=== PATIENT | male | born 1955 | race Caucasian/White ===

== ENCOUNTER → 2016-06-29 | Outpatient (CLI) | payer MEDICARE ==
[2016-06-29 13:11] LABS: Bilirubin, Delta 0.5 mg/dL (0.0-0.2); Total Bilirubin 0.9 mg/dL (0.2-1.3); Total Protein 7.4 g/dL (6.3-8.2)
[2016-06-29 13:18] LABS: INR 1.4 (<1.1)
[2016-06-29 13:20] LABS: Basophils % (A) 1 %; CH 31.5; CHCM 34.3; Eosinophils # (A) 0.1 k/uL (0-0.7); Eosinophils % (A) 1 %; HCT 47.9 % (39.0-53.0); HDW 2.74; HGB 16.1 gm/dL (13.0-17.5); Luc # (Auto) 0.06; Luc % (Auto) 1; Lymphocytes # (A) 1.3 k/uL (1.0-4.8); Lymphocytes % (A) 26 %; MCH 31.1 pg (25.0-35.0); MCHC 33.7 g/dL (31.0-37.0); MCV 92.3 fL (80.0-100.0); Monocytes # (A) 0.2 k/uL (0-1.0); Monocytes % (A) 4 %; Neutrophils # (A) 3.5 k/uL (1.3-7.7); Neutrophils % (A) 67 %; RBC 5.19 m/uL (4.30-5.90); RDW 15.7 % (11.5-15.5); WBC 5.1 k/uL (3.8-10.6); WBC (Perox) 5.05
[2016-06-29 14:07] LABS: Manual Review Performed
== END | disposition home or self-care (01) ==
LOC: LABWHC1 12:25
PROVIDERS: ATTEND Physician Assistant
DX: B18.2 Chronic viral hepatitis C (principal)
CPT/HCPCS: 36415; 80076; 82105; 85025; 85610

== ENCOUNTER → 2016-07-06 | Outpatient (CLI) | payer MEDICARE ==
[2016-07-06 17:25] LABS: Blood Urea Nitrogen 13 mg/dL (9-20); Non-African American GFR(MDRD) >60 (>60 ml/min/1.73 sqM)
--- NOTE | 2016-07-06 18:52 | MR ---
EXAMINATION TYPE: MR liver wo/w con DATE OF EXAM: CT abdomen pelvis 08/10/2013 COMPARISON: NONE HISTORY: Chronic viral Hepatitis C CONTRAST: Standard multiplanar, multisequence MRI departmental protocol utilizing 15 mL intravenous MultiHance gadolinium contrast. FINDINGS: The liver is diminutive in size with peripheral nodular contour compatible with a cirrhotic liver dis ease. No intrahepatic lesion is identified. There is evidence of hepatic steatosis. The gallbladder a ppears to be surgically absent. There is evidence of splenomegaly with craniocaudal measurement of 16.5 cm. No intrasplenic lesion is seen. Portal vein is patent. Pancreas is free of mass or inflammatory process. Nodular thickening of both adrenal glands may reflect small adenomas versus hyperplasia. Simple renal cysts identified measuring 3.8 cm on the right at its upper pole and 3.5 cm mid to lower pole left kidney. A smaller renal cortical cysts are also noted. Abdominal aorta is of normal caliber. No evidence for adenopathy within the upper abdomen. IMPRESSION: 1. Cirrhotic liver disease. 2. Splenomegaly. 3. Hepatic steatosis. 4. Simple renal cysts.
== END | disposition home or self-care (01) ==
LOC: RADMRIMAIN 16:52
PROVIDERS: ATTEND Physician Assistant
DX: K76.0 Fatty (change of) liver, not elsewhere classified (principal); K74.60 Unspecified cirrhosis of liver; R16.1 Splenomegaly, not elsewhere classified; B18.2 Chronic viral hepatitis C; N28.1 Cyst of kidney, acquired
CPT/HCPCS: 82565; 84520; 74183; A9577

== ENCOUNTER 2016-07-19 07:38 | Day surgery (SDC) | payer MEDICARE ==
[2016-06-30 15:59] VITALS: BMI 29.1
[~2016-07-19 07:38] MED LIST: LACTATED RINGERS 1,000 ML IV SCH
[2016-07-19 08:02] VITALS: TEMP 98.2
[2016-07-19] MEDS ORDERED: LIDOCAINE 1% 20 ML VIAL (10MG/ML) FOR IV START INTRADERMA ONE (08:11)
[2016-07-19] MEDS ORDERED: PROPOFOL 10 MG/ML 20 ML VIAL IV ONE (09:10)
--- NOTE | 2016-07-19 10:16 | P.PCN ---
Date of Procedure: 07/19/16 Preoperative Diagnosis: Postoperative Diagnosis: Procedure(s) Performed: Procedures: 1. Esophagogastroduodenoscopy and biopsy. 2. Colonoscopy and polypectomy. Preoperative diagnosis: Abdominal pain, history of polyps and history of diverticulitis. Postoperative diagnosis: 1. Small sliding hiatal hernia with no obvious esophagitis or complicated reflux disease. 2. Mild gastritis and duodenitis. 3. Sigmoid diverticulosis with no evidence of acute diverticulitis or strictures. 4. Multiple small polyps snared but no large polyps or cancer. Preparation: HalfLytely prep. Sedation: Was provided by anesthesia. Brief clinical history: The patient is a 61-year-old male who was scheduled for this evaluation because of history of polyps and recent episode of diverticulitis. He has been also experiencing abdominal pain. Procedure: With the patient on his left lateral decubitus position and after informed consent and adequate sedation, I passed the Olympus-GIF 160 video upper endoscope through the cricopharyngeus down the esophagus. GE junction was at around 41 cm from the incisors and there was a small sliding hiatal hernia. The esophagus did not show any erosions, ulcers, strictures or Garcia' s esophagus. The endoscope was then passed into the stomach which was insufflated with air and inspected in detail including the retroflex view in the cardia. There was some mottling and erythema in the antrum but no ulcers or erosions. Pyloric channel did not show any ulcers. Duodenal bulb showed some erythema and couple erosions but no ulcers or bleeding post bulbar area and descending duodenum showed mild erythema. I obtained biopsies from the duodenum, antrum and esophagus then the endoscope was withdrawn and I proceeded with the colonoscopy. Perianal area did not show any fissures or fistulas. There were no masses felt on digital rectal examination. The Olympus CFQ 160L video colonoscope was then inserted in the rectum in the usual fashion and advanced to the cecum. There were multiple diverticular orifices seen scattered in the sigmoid with no evidence of acute diverticulitis or strictures. Multiple small polyps were seen and snared couple in the right colon and couple around the hepatic and couple around the splenic flexure. No large polyps or cancer were seen. I retroflexed the endoscope in the rectum before the endoscope was withdrawn. The patient tolerated the procedure well. Plan: The patient was reassured. Will await biopsy results. I anticipate repeating his colonoscopy in 3 years. He will follow up with you as planned. Implants: Indications for Procedure: Operative Findings: Description of Procedure:
[2016-07-19 10:26] VITALS: BP 132/80; PULSE 75; RESP 18
== END 2016-07-19 11:10 | disposition home or self-care (01) ==
LOC: ORWHC2ENDO 07:38
DX: K29.50 Unspecified chronic gastritis without bleeding (principal); K20.9 Esophagitis, unspecified; D12.3 Benign neoplasm of transverse colon; K63.5 Polyp of colon; K44.9 Diaphragmatic hernia without obstruction or gangrene; K57.30 Diverticulosis of large intestine without perforation or abscess without bleeding; Z86.010 Personal history of colon polyps; K29.80 Duodenitis without bleeding; J44.9 Chronic obstructive pulmonary disease, unspecified; E07.9 Disorder of thyroid, unspecified; Z88.5 Allergy status to narcotic agent; Z91.09 Other allergy status, other than to drugs and biological substances
CPT/HCPCS: 88305; 88342; 45385; 43239; J2704

== ENCOUNTER 2017-04-24 21:14 | Inpatient (IN) | payer MEDICARE ==
[2017-04-24] MEDS ORDERED: ACETAMINOPHEN TAB 500 MG TAB PO STA (21:41)
[2017-04-24] MEDS ORDERED: SODIUM CHLORIDE 0.9% 500 ML IV STA (21:41)
--- NOTE | 2017-04-24 21:46 | ED ---
Weakness HPI - General Chief complaint: Weakness Stated complaint: Poss CVA Time Seen by Provider: 04/24/17 21:33 Source: patient, EMS, RN notes reviewed Mode of arrival: ambulatory Limitations: no limitations - History of Present Illness Initial comments: This a 62-year-old male presents emergency Department via EMS for increased weakness. Patient states that his family is concerned because he seemed to be more weak than he has been recently. Patient states he had a hemorrhagic stroke in December. Patient states she was transferred from here to [facility] in states that he went to rehab after. Patient states that he had very little limited range of motion of his left leg has essentially no movement of his left arm and has residual facial paralysis. Patient states that he feels this is unchanged though family that it was worse. Patient states that he does have a slight headache but has been on and off. Patient states that he did not know he had a fever at home. Patient denies any recent Tylenol or Motrin. Patient states he has had a cough and is mildly productive. Patient states he was a former smoker quit after his stroke. Patient denies any dysuria , hematuria. Patient denies any current chest pain, shortness breath, nausea vomiting. - Related Data Home Medications Medication Instructions Recorded Confirmed FLUoxetine HCL [PROzac] 20 mg PO DAILY 04/24/17 04/24/17 Gabapentin [Neurontin] 800 mg PO TID 04/24/17 04/24/17 Levothyroxine Sodium [Synthroid] 50 mcg PO DAILY 04/24/17 04/24/17 Lisinopril [Zestril] 20 mg PO DAILY 04/24/17 04/24/17 levETIRAcetam [Keppra] 500 mg PO Q12HR 04/24/17 04/24/17 Allergies Allergy/AdvReac Type Severity Reaction Status Date / Time tramadol Allergy Severe SEIZURE Verified 04/24/17 21:24 black rubber Allergy Severe Dyspnea, Uncoded 04/24/17 21:24 Swelling Review of Systems ROS Statement: Those systems with pertinent positive or pertinent negative responses have been documented in the HPI. ROS Other: All systems not noted in ROS Statement are negative. Past Medical History Past Medical History: Thyroid Disorder Additional Past Medical History / Comment(s): hemorrhagic stroke, cirrohsis, hep c History of Any Multi-Drug Resistant Organisms: None Reported Past Surgical History: Hernia Repair, Orthopedic Surgery Past Psychological History: No Psychological Hx Reported Smoking Status: Former smoker Past Alcohol Use History: None Reported Past Drug Use History: None Reported General Exam Limitations: no limitations General appearance: alert, in no apparent distress Head exam: Present: atraumatic, normocephalic, normal inspection Eye exam: Present: normal appearance, PERRL, EOMI. Absent: scleral icterus, conjunctival injection, periorbital swelling ENT exam: Present: normal oropharynx, mucous membranes moist, TM's normal bilaterally, normal external ear exam. Absent: normal exam (Residual left- sided facial drooping) Neck exam: Present: normal inspection, full ROM. Absent: tenderness, meningismus, lymphadenopathy Respiratory exam: Present: normal lung sounds bilaterally. Absent: respiratory distress, wheezes, rales, rhonchi, stridor Cardiovascular Exam: Present: normal rhythm, tachycardia, normal heart sounds. Absent: systolic murmur, diastolic murmur, rubs, gallop, clicks GI/Abdominal exam: Present: soft, normal bowel sounds. Absent: distended, tenderness, guarding, rebound, rigid Extremities exam: Present: other (Pulses are equal in all extremities, patient has limited movement of left lower extremity, essentially no movement of the left upper extremity patient reports is unchanged from his normal baseline) Neurological exam: Present: alert, oriented X3, CN II-XII intact, reflexes normal, other (Unable to assess finger-nose with left hand, right hand intact without shooting, GCS of 15). Absent: motor sensory deficit Skin exam: Present: warm, dry, intact, normal color. Absent: rash Course Vital Signs 04/24/17 04/24/17 21:24 22:52 Temperature 101.1 F H 100.4 F H Pulse Rate 103 H 89 Respiratory 20 18 Rate Blood Pressure 99/70 105/85 O2 Sat by Pulse 95 95 Oximetry EKG Findings - EKG Comments: EKG Findings:: EKG performed at 22:14 normal sinus rhythm with a rate of 92 CO 156 QRS 86 QT/QTC 350/432 Medical Decision Making - Medical Decision Making 62-year-old male presented for weakness. Patient has pneumonia, UTI and slightly elevated CK. Patient was hydrated emergency breath. Patient was started on antibiotics for hospital-acquired pneumonia as he has been within the hospital last few months. There is evidence of old infarct there is no new infarct noted on CT. - Lab Data Result diagrams: 04/24/17 21:54 04/24/17 21:54 Lab Results 04/24/17 04/24/17 04/24/17 Range/Units 21:54 21:54 21:54 WBC 8.9 (3.8-10.6) k/uL RBC 5.21 (4.30-5.90) m/uL Hgb 15.4 (13.0-17.5) gm/dL Hct 46.6 (39.0-53.0) % MCV 89.3 (80.0-100.0) fL MCH 29.6 (25.0-35.0) pg MCHC 33.1 (31.0-37.0) g/dL RDW 14.5 (11.5-15.5) % Plt Count 105 L (150-450) k/uL Neutrophils % 76 % Lymphocytes % 18 % Monocytes % 4 % Eosinophils % 2 % Basophils % 0 % Neutrophils # 6.7 (1.3-7.7) k/uL Lymphocytes # 1.6 (1.0-4.8) k/uL Monocytes # 0.4 (0-1.0) k/uL Eosinophils # 0.2 (0-0.7) k/uL Basophils # 0.0 (0-0.2) k/uL PT (9.0-12.0) sec INR (<1.2) APTT (22.0-30.0) sec Sodium 139 (137-145) mmol/L Potassium 4.1 (3.5-5.1) mmol/L Chloride 102 (98-107) mmol/L Carbon Dioxide 29 (22-30) mmol/L Anion Gap 8 mmol/L BUN 12 (9-20) mg/dL Creatinine 0.70 (0.66-1.25) mg/dL Est GFR (MDRD) Af Amer >60 (>60 ml/min/1.73 sqM) Est GFR (MDRD) Non-Af >60 (>60 ml/min/1.73 sqM) Glucose 119 H (74-99) mg/dL Plasma Lactic Acid Ralf (0.7-2.0) mmol/L Calcium 9.7 (8.4-10.2) mg/dL Magnesium 1.9 (1.6-2.3) mg/dL Total Bilirubin 1.0 (0.2-1.3) mg/dL AST 59 (17-59) U/L ALT 34 (21-72) U/L Alkaline Phosphatase 93 (38-126) U/L Total Creatine Kinase 1405 H (55-170) U/L CK-MB (CK-2) 1.5 (0.0-2.4) ng/mL CK-MB (CK-2) Rel Index 0.1 Troponin I <0.012 (0.000-0.034) ng/mL Total Protein 7.2 (6.3-8.2) g/dL Albumin 3.7 (3.5-5.0) g/dL Urine Color Urine Appearance (Clear) Urine pH (5.0-8.0) Ur Specific [place] (1.001-1.035) Urine Protein (Negative) Urine Glucose (UA) (Negative) Urine Ketones (Negative) Urine Blood (Negative) Urine Nitrite (Negative) Urine Bilirubin (Negative) Urine Urobilinogen (<2.0) mg/dL Ur Leukocyte Esterase (Negative) Urine RBC (0-5) /hpf Urine WBC (0-5) /hpf Influenza Type A RNA (Not Detectd) Influenza Type B (PCR) (Not Detectd) 04/24/17 04/24/17 04/24/17 Range/Units 21:54 21:54 21:54 WBC (3.8-10.6) k/uL RBC (4.30-5.90) m/uL Hgb (13.0-17.5) gm/dL Hct (39.0-53.0) % MCV (80.0-100.0) fL MCH (25.0-35.0) pg MCHC (31.0-37.0) g/dL RDW (11.5-15.5) % Plt Count (150-450) k/uL Neutrophils % % Lymphocytes % % Monocytes % % Eosinophils % % Basophils % % Neutrophils # (1.3-7.7) k/uL Lymphocytes # (1.0-4.8) k/uL Monocytes # (0-1.0) k/uL Eosinophils # (0-0.7) k/uL Basophils # (0-0.2) k/uL PT 11.8 (9.0-12.0) sec INR 1.2 H (<1.2) APTT 22.5 (22.0-30.0) sec Sodium (137-145) mmol/L Potassium (3.5-5.1) mmol/L Chloride (98-107) mmol/L Carbon Dioxide (22-30) mmol/L Anion Gap mmol/L BUN (9-20) mg/dL Creatinine (0.66-1.25) mg/dL Est GFR (MDRD) Af Amer (>60 ml/min/1.73 sqM) Est GFR (MDRD) Non-Af (>60 ml/min/1.73 sqM) Glucose (74-99) mg/dL Plasma Lactic Acid Ralf 1.5 (0.7-2.0) mmol/L Calcium (8.4-10.2) mg/dL Magnesium (1.6-2.3) mg/dL Total Bilirubin (0.2-1.3) mg/dL AST (17-59) U/L ALT (21-72) U/L Alkaline Phosphatase (38-126) U/L Total Creatine Kinase (55-170) U/L CK-MB (CK-2) (0.0-2.4) ng/mL CK-MB (CK-2) Rel Index Troponin I (0.000-0.034) ng/mL Total Protein (6.3-8.2) g/dL Albumin (3.5-5.0) g/dL Urine Color Yellow Urine Appearance Clear (Clear) Urine pH 8.0 (5.0-8.0) Ur Specific [place] 1.006 (1.001-1.035) Urine Protein Negative (Negative) Urine Glucose (UA) Negative (Negative) Urine Ketones Negative (Negative) Urine Blood Negative (Negative) Urine Nitrite Negative (Negative) Urine Bilirubin Negative (Negative) Urine Urobilinogen 8.0 (<2.0) mg/dL Ur Leukocyte Esterase Large H (Negative) Urine RBC 3 (0-5) /hpf Urine WBC 26 H (0-5) /hpf Influenza Type A RNA (Not Detectd) Influenza Type B (PCR) (Not Detectd) 04/24/17 Range/Units 22:00 WBC (3.8-10.6) k/uL RBC (4.30-5.90) m/uL Hgb (13.0-17.5) gm/dL Hct (39.0-53.0) % MCV (80.0-100.0) fL MCH (25.0-35.0) pg MCHC (31.0-37.0) g/dL RDW (11.5-15.5) % Plt Count (150-450) k/uL Neutrophils % % Lymphocytes % % Monocytes % % Eosinophils % % Basophils % % Neutrophils # (1.3-7.7) k/uL Lymphocytes # (1.0-4.8) k/uL Monocytes # (0-1.0) k/uL Eosinophils # (0-0.7) k/uL Basophils # (0-0.2) k/uL PT (9.0-12.0) sec INR (<1.2) APTT (22.0-30.0) sec Sodium (137-145) mmol/L Potassium (3.5-5.1) mmol/L Chloride (98-107) mmol/L Carbon Dioxide (22-30) mmol/L Anion Gap mmol/L BUN (9-20) mg/dL Creatinine (0.66-1.25) mg/dL Est GFR (MDRD) Af Amer (>60 ml/min/1.73 sqM) Est GFR (MDRD) Non-Af (>60 ml/min/1.73 sqM) Glucose (74-99) mg/dL Plasma Lactic Acid Ralf (0.7-2.0) mmol/L Calcium (8.4-10.2) mg/dL Magnesium (1.6-2.3) mg/dL Total Bilirubin (0.2-1.3) mg/dL AST (17-59) U/L ALT (21-72) U/L Alkaline Phosphatase (38-126) U/L Total Creatine Kinase (55-170) U/L CK-MB (CK-2) (0.0-2.4) ng/mL CK-MB (CK-2) Rel Index Troponin I (0.000-0.034) ng/mL Total Protein (6.3-8.2) g/dL Albumin (3.5-5.0) g/dL Urine Color Urine Appearance (Clear) Urine pH (5.0-8.0) Ur Specific [place] (1.001-1.035) Urine Protein (Negative) Urine Glucose (UA) (Negative) Urine Ketones (Negative) Urine Blood (Negative) Urine Nitrite (Negative) Urine Bilirubin (Negative) Urine Urobilinogen (<2.0) mg/dL Ur Leukocyte Esterase (Negative) Urine RBC (0-5) /hpf Urine WBC (0-5) /hpf Influenza Type A RNA Not Detected (Not Detectd) Influenza Type B (PCR) Not Detected (Not Detectd) Disposition Clinical Impression: Pneumonia, UTI (urinary tract infection) Disposition: ADMITTED IP TO THIS HOSP Condition: Fair Referrals: Juancarlos Beck DO [Primary Care Provider] - 1-2 days
[2017-04-24] MEDS ORDERED: LIDOCAINE URO-JET JELLY 2% 5 ML KIT URETHRAL ONE (21:50)
[2017-04-24 22:10] LABS: Basophils % (A) 0 %; Eosinophils # (A) 0.2 k/uL (0-0.7); Eosinophils % (A) 2 %; HCT 46.6 % (39.0-53.0); HGB 15.4 gm/dL (13.0-17.5); Lymphocytes # (A) 1.6 k/uL (1.0-4.8); Lymphocytes % (A) 18 %; MCH 29.6 pg (25.0-35.0); MCHC 33.1 g/dL (31.0-37.0); MCV 89.3 fL (80.0-100.0); Mean Platelet Volume 9.6; Monocytes # (A) 0.4 k/uL (0-1.0); Monocytes % (A) 4 %; Neutrophils # (A) 6.7 k/uL (1.3-7.7); Neutrophils % (A) 76 %; Platelet Count 105 k/uL (150-450); RBC 5.21 m/uL (4.30-5.90); RDW 14.5 % (11.5-15.5); WBC 8.9 k/uL (3.8-10.6)
[2017-04-24 22:19] LABS: Appearance,Urine Clear (Clear); Bilirubin,Urine Negative (Negative); Blood,Urine Negative (Negative); Color,Urine Yellow; Glucose,Urine (UA) Negative (Negative); INR 1.2 (<1.2); Ketones,Urine Negative (Negative); Leukocyte Esterase,Urine Large (Negative); Nitrite,Urine Negative (Negative); Partial Thromboplastin Time 22.5 sec (22.0-30.0); Protein,Urine Negative (Negative); Prothrombin Time 11.8 sec (9.0-12.0); RBC,Urine 3 /hpf (0-5); Specific Gravity,Urine 1.006 (1.001-1.035); WBC,Urine 26 /hpf (0-5)
[2017-04-24 22:24] LABS: ALT 34 U/L (21-72); AST 59 U/L (17-59); Albumin 3.7 g/dL (3.5-5.0); Alkaline Phosphatase 93 U/L (38-126); Anion Gap 8 mmol/L; Blood Urea Nitrogen 12 mg/dL (9-20); Calcium 9.7 mg/dL (8.4-10.2); Carbon Dioxide 29 mmol/L (22-30); Chloride 102 mmol/L (98-107); Creatine Kinase 1405 U/L (55-170); Glucose 119 mg/dL (74-99); Magnesium 1.9 mg/dL (1.6-2.3); Potassium 4.1 mmol/L (3.5-5.1); Sodium 139 mmol/L (137-145); Total Protein 7.2 g/dL (6.3-8.2)
[2017-04-24 22:38] LABS: Creatine Kinase MB 1.5 ng/mL (0.0-2.4); Troponin I <0.012 ng/mL (0.000-0.034)
[2017-04-24] MEDS ORDERED: SODIUM CHLORIDE 0.9% 500 ML IV ONE (22:41)
[2017-04-24] MEDS ORDERED: SODIUM CHLORIDE 0.9% 1,000 ML IV ONE (22:41)
--- NOTE | 2017-04-24 22:45 | CT ---
EXAMINATION TYPE: CT brain wo con DATE OF EXAM: 04/24/2017 COMPARISON: 08/10/2013 HISTORY: Altered mental status. CT DLP: 852.6 mGycm Automated exposure control for dose reduction was used. FINDINGS: There is a large area of hypodensity in the right internal capsule that measures 5 x 2.5 cm consisten t with an old infarct. There is no midline shift. There is no sign of intracranial hemorrhage. The ca lvarium is intact. There is some mucosal thickening in the ethmoid and left maxillary sinus. IMPRESSION: THERE IS A LARGE RIGHT SIDE INTERNAL CAPSULE INFARCT THAT APPEARS NEW COMPARED TO OLD CT SCAN. THERE IS NEW ETHMOID AND LEFT MAXILLARY SINUSITIS. NO HEMORRHAGE.
--- NOTE | 2017-04-24 22:51 | XR ---
EXAMINATION TYPE: XR chest 2V DATE OF EXAM: 04/24/2017 COMPARISON: 08/10/2013 HISTORY: Weakness TECHNIQUE: Frontal and lateral views of the chest are obtained. FINDINGS: There is mild infiltrate at the left lung base. There is no heart failure. Heart size is n ormal. Thoracic aorta is atheromatous. There are chest leads. IMPRESSION: There is increasing infiltrate and atelectasis at the left lung base compared to old exa m. No heart failure.
[2017-04-24] MEDS ORDERED: LEVOFLOXACIN 750MG-D5W PMX 750 MG in DEXTROSE/WATER 1 150ML.BAG IVPB STA (23:19)
[2017-04-24] MEDS ORDERED: PNEUMONIA PROTOCOL UTILIZED 1 EACH MISC PO PRN (23:19)
[2017-04-24] MEDS ORDERED: VANCOMYCIN IV PER PHARMACY 1 EACH MISC MISCELLANE PRN (23:20)
[2017-04-24] MEDS ORDERED: ACETAMINOPHEN TAB 325 MG TAB PO PRN (23:20)
[2017-04-24] MEDS ORDERED: VANCOMYCIN 1,500 MG in SODIUM CHLORIDE 0.9% 250 ML IVPB STA (23:28)
[2017-04-25] MEDS: SODIUM CHLORIDE 0.9% 1,000 ML IV SCH ×3 (00:05→22:47)
[2017-04-25] MEDS: HYDROcodone/APAP 10-325MG 1 EACH TAB PO PRN ×3 (00:55→19:23)
[2017-04-25 01:24] VITALS: BMI 28.8
[2017-04-25] MEDS ORDERED: VANCOMYCIN 1,500 MG in SODIUM CHLORIDE 0.9% 250 ML IVPB SCH (13:00)
--- NOTE | 2017-04-25 15:46 | XR ---
EXAMINATION TYPE: XR chest 2V DATE OF EXAM: 04/25/2017 COMPARISON: 04/24/2017 HISTORY: 62-year-old male follow-up pneumonia TECHNIQUE: AP and lateral views FINDINGS: Heart upper limits of normal in size. Atherosclerotic arch calcifications. Diffuse interstitial promi nence may be slightly increased. Focal density right mid to lower lung is new and probably represents an area of atelectasis. Continued patchy airspace opacity peripheral left base. Likely posteriorly l ocated on the lateral view. ACF hardware and bilateral suture anchors at the humeral heads. IMPRESSION: Continued focal airspace disease at the left base. Some increasing interstitial densities. Correlate to exclude mild CHF.
[2017-04-25] MEDS: GABAPENTIN 400 MG CAP PO SCH ×2 (16:17→22:34)
[2017-04-25] MEDS: PIPERACILLIN-TAZOBACTAM 3.375 GM in DEXTROSE/WATER 1 50ML.BAG IVPB SCH (16:17)
--- NOTE | 2017-04-25 16:33 | HP ---
HISTORY AND PHYSICAL CHIEF COMPLAINTS: Weakness and cough. HISTORY OF PRESENT ILLNESS: This 62-year-old gentleman with a past medical history of multiple medical problems, including hypothyroid, cirrhosis, hepatitis C, history of hernia and orthopedic surgery, apparently had a recent stroke on the right hemisphere causing significant left-sided weakness. The patient also had a liver MRI that showed hepatic steatosis and cirrhotic liver last year. The patient apparently had increasing weakness and the family was concerned. The patient also has a cough. He had a hemorrhage stroke in December, which was treated in [facility] later. Currently the patient also has features of UTI and the patient was admitted for further evaluation and treatment. The patient was not able to give a coherent history, and most of the history was taken from my discussion with staff as well as review of the chart at this time. Patient was started on broad-spectrum IV antibiotics. Cultures are pending at this time. Minimal headache was also complained of. The patient had a CT scan of the brain on admission which showed a large right-sided internal capsule infarct that appears to be new when compared to the old scan. He had a chest x-ray showing increasing infiltrate in the left lung base also noted. PAST MEDICAL HISTORY: 1. History of thyroid disorder. 2. Hemorrhagic stroke. 3. Cirrhosis. 4. Hepatitis C. 5. Hernia repair. HOME MEDICATIONS: 1. Keppra 500 mg b.i.d. 2. Neurontin 800 mg t.i.d. 3. Zestril 20 mg daily. 4. Synthroid 50 mcg p.o. daily. 5. Prozac 20 mg p.o. daily. ALLERGIES: 1. TRAMADOL. 2. BLACK RUBBER. Family history, social history and review of systems could not be taken at length because of the patient's speech and mental status. Previous history of smoking per chart. PHYSICAL EXAMINATION: Patient is but disoriented. Pulse 79, blood pressure 130/72, respiration 16, temperature 98.2, pulse ox 93% on 2 L, HEENT: Conjunctivae normal. Oral mucosa moist. NECK: No jugular venous distention. No carotid bruit. No lymph node enlargement. CARDIOVASCULAR SYSTEM: S1, S2 muffled. No S3. No S4. RESPIRATORY SYSTEM: Breath sounds diminished at the bases. Bilateral scattered rhonchi and expiratory wheezing and crackles, especially left more than the right. ABDOMEN: Soft, obese, nontender. No mass palpable. LEGS: No edema. No swelling. NERVOUS SYSTEM: Minimal weakness on the left side present; otherwise no LYMPHATICS: No lymph node palpable in neck, axillae or groin. JOINTS: No active deforming arthropathy. LABS: WBC 8.2, hemoglobin 15.4. Creatinine is 1.2. Creatine kinase 1405. UA noted. ASSESSMENT: 1. Acute urinary tract infection with sepsis. 2. Possible left lower lobe pneumonia, possibly aspiration. 3. Increased creatine kinase. Rule out mild rhabdomyolysis. 4. Right hemispheric hemorrhagic stroke causing left-sided weakness. 5. History of cirrhosis of the liver. 6. Hepatitis C. 7. History of hypothyroidism. 8. History of hernia surgery. 9. History of degenerative joint disease. RECOMMENDATIONS AND DISCUSSION: In this 62-year-old gentleman who presented with multiple complex medical issues., we will we will monitor the patient closely, continue the current medications, continue with symptomatic treatment. I will initiate broad-spectrum IV antibiotics. I recommend neurology as well as pulmonary consultations. Speech Pathology. Swallow evaluation. Repeat CT scan noted. Prognosis extremely guarded because of multiple complex medical issues. I would also recommend PT/OT evaluation. Reevaluation and continue to monitor. Guarded prognosis. Further recommendations to follow. MMODL / IJN: [id number] / KIM
[2017-04-25] MEDS ORDERED: ALBUTEROL NEBULIZED 2.5 MG/3 ML INHALATION SCH (20:00)
[2017-04-25] MEDS: IPRATROPIUM-ALBUTEROL 3 ML NEB INHALATION SCH (20:18)
[2017-04-25] MEDS: HEPARIN SODIUM,PORCINE 5,000 UNIT/ML 1 ML VIAL SQ SCH (20:47)
[2017-04-25] MEDS: levETIRAcetam 500 MG TAB PO SCH (20:47)
--- NOTE | 2017-04-25 21:47 | P.CNNES ---
History of Present Illness Consult date: 04/25/17 Reason for Consult: Patient with weakness and history of hemorrhagic stroke. History of Present Illness: This patient is a 62-year-old right-handed white male who was brought into the emergency room today for evaluation of increased weakness. 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 Patient was treated for this stroke at [facility] and was transferred after initial evaluation there to [facility]. Patient states he was in the nursing facility for 12 weeks and underwent extensive rehabilitation. He is now been staying at home with help of a caregiver. His son also lives with him and helps with his day-to-day care. He has significant left-sided hemiplegia from his stroke. Due to the increased weakness there was concern and he was brought into the emergency room yesterday for further evaluation. He was seen in the ER by Dr. Chapman. He was sent for a computed tomography scan of the brain which revealed a large right internal capsule infarct that appears new compared to his old CAT scan. The previous CAT scan was done on 08/10/2013. There was evidence of new ethmoid sinusitis. No evidence of hemorrhage. Review of the CAT scan films does reveal a large area of old ischemic infarct in the right basal ganglia. There is also some subtle areas of hypodensity noted just below this region. The patient was admitted to the hospital for further evaluation. He is being treated at this time for positive urinary tract infection. He is currently on antibiotic therapy with vancomycin and Zosyn. Patient states that he has been feeling weak at home. He does have care givers helping him at home around the clock. There is concern for left lower lobe pneumonia as well and he is to be evaluated for aspiration pneumonia. Speech therapy has been consulted. As noted his CAT scan films were reviewed. We would recommend if possible an MRI of the brain to be done for further evaluation. Patient states he does have history of having had cervical spine surgery done in 2009. He will have to be cleared if he can undergo MRI scan of the brain for further assessment. The patient otherwise states he is somewhat improved with his overall mental status and clarity of thought. As noted he is being treated for underlying urinary tract infection at this time. He is now been admitted and neurology has been consulted for further evaluation and recommendations. Review of Systems Constitutional: Denies chills, Denies fever Eyes: denies blurred vision, denies pain Ears, nose, mouth and throat: Denies headache, Denies sore throat Cardiovascular: Denies chest pain, Denies shortness of breath Respiratory: Denies cough Gastrointestinal: Denies abdominal pain, Denies diarrhea, Denies nausea, Denies vomiting Musculoskeletal: Denies myalgias Integumentary: Denies pruritus, Denies rash Neurological: Reports confusion, Reports motor disturbance, Reports paralysis ( Patient has left-sided hemiplegia.), Denies numbness, Denies weakness Psychiatric: Denies anxiety, Denies depression Endocrine: Denies fatigue, Denies weight change Past Medical History Past Medical History: Thyroid Disorder Additional Past Medical History / Comment(s): hemorrhagic stroke, cirrohsis, hep c History of Any Multi-Drug Resistant Organisms: None Reported Past Surgical History: Hernia Repair, Orthopedic Surgery Additional Past Surgical History / Comment(s): bilat rotator cuff, carpal tunnel surgery, neck surgery Past Anesthesia/Blood Transfusion Reactions: No Reported Reaction Past Psychological History: No Psychological Hx Reported Smoking Status: Former smoker Past Alcohol Use History: None Reported Past Drug Use History: None Reported Medications and Allergies Home Medications Medication Instructions Recorded Confirmed Type FLUoxetine HCL [PROzac] 20 mg PO DAILY 04/24/17 04/24/17 History Gabapentin [Neurontin] 800 mg PO TID 04/24/17 04/24/17 History Levothyroxine Sodium [Synthroid] 50 mcg PO DAILY 04/24/17 04/24/17 History Lisinopril [Zestril] 20 mg PO DAILY 04/24/17 04/24/17 History levETIRAcetam [Keppra] 500 mg PO Q12HR 04/24/17 04/24/17 History Allergies Allergy/AdvReac Type Severity Reaction Status Date / Time tramadol Allergy Severe SEIZURE Verified 04/24/17 21:24 black rubber Allergy Severe Dyspnea, Uncoded 04/24/17 21:24 Swelling Physical Examination - Vital Signs Vital Signs: Vital Signs Temp Pulse Pulse Resp BP BP BP 04/25/17 20:30 78 04/25/17 20:18 80 04/25/17 19:33 97.8 F 83 18 135/83 04/25/17 14:30 98.2 F 79 16 113/72 04/25/17 07:00 97.6 F 74 16 109/71 04/25/17 01:21 97.6 F 90 17 130/86 04/24/17 23:45 98.9 F 92 18 115/70 04/24/17 22:52 100.4 F H 89 18 105/85 Pulse Ox 04/25/17 20:30 04/25/17 20:18 04/25/17 19:33 95 04/25/17 14:30 93 L 04/25/17 07:00 96 04/25/17 01:21 98 04/24/17 23:45 96 04/24/17 22:52 95 Intake and Output 04/25/17 04/25/17 04/25/17 06:59 14:59 22:59 Intake Total 800 800 220 Balance 800 800 220 Intake: Intake, IV Titration 800 Amount Sodium Chloride 0.9% 1, 800 000 ml @ 100 mls/hr IV . Q10H [facility] Rx#:[id number] Oral 800 220 Other: Voiding Method Urinal Urinal Incontinent Incontinent # Voids 3 1 Weight 83.461 kg - Constitutional General appearance: average body habitus, cooperative - EENT EENT: PERRL, mucous membranes moist - Respiratory Respiratory: lungs clear, normal breath sounds - Cardiovascular Cardiovascular: regular rate, normal S1, normal S2 Extremities: no peripheral edema bilaterally - Gastrointestinal Gastrointestinal: normoactive bowel sounds - Integumentary Integumentary: normal - Neurologic Cranial nerve examination: PERRL, EOMI, VFF, V1/V2/V3 grossly intact, face symmetric, tongue midline, intact gag reflex, intact corneal reflex, normal palatal elevation Speech examination: intact Motor examination - right side: 4/5: biceps, triceps, wrist flexion, wrist extension, circular gang saw operator, hip flexors, knee extensors, dorsiflexion, toe extension (EHL) , plantarflexion Motor examination - left side: 1/5: biceps, triceps, wrist flexion, wrist extension, circular gang saw operator, hip flexors, knee extensors, dorsiflexion, toe extension (EHL) , plantarflexion Detailed sensory examination: intact Reflex and gait examination: intact Reflexes: 1+: ankle, bicep, knee, tricep - Musculoskeletal Musculoskeletal: no pain - Psychiatric Psychiatric: mood/affect appropriate, cooperative Results - Laboratory Findings CBC and BMP: 04/24/17 21:54 04/24/17 21:54 Abnormal Lab Findings: Abnormal Labs 04/24/17 04/24/17 04/24/17 21:54 21:54 21:54 Plt Count 105 L INR Glucose 119 H Total Creatine Kinase 1405 H Ur Leukocyte Esterase Urine WBC 04/24/17 04/24/17 21:54 21:54 Plt Count INR 1.2 H Glucose Total Creatine Kinase Ur Leukocyte Esterase Large H Urine WBC 26 H Assessment and Plan (1) History of hemorrhagic stroke with residual hemiplegia Current Visit: Yes Status: Acute Code(s): I69.359 - HEMIPLGA FOLLOWING CEREBRAL INFARCTION AFFECTING UNSP SIDE SNOMED Code(s): 797985144 (2) Acute encephalopathy Current Visit: Yes Status: Acute Code(s): G93.40 - ENCEPHALOPATHY, UNSPECIFIED SNOMED Code(s): 16123081 (3) UTI (urinary tract infection) Current Visit: Yes Status: Acute Code(s): N39.0 - URINARY TRACT INFECTION, SITE NOT SPECIFIED SNOMED Code(s): 64628461 (4) Pneumonia Current Visit: Yes Status: Acute Code(s): J18.9 - PNEUMONIA, UNSPECIFIED ORGANISM SNOMED Code(s): 674255930 Plan: This patient is a 62-year-old male admitted to Hospital with symptoms of increased weakness and fatigue symptoms. Patient has a history of having suffered a acute hemorrhagic stroke involving the right hemisphere in the right basal ganglia. This stroke occurred back in December and he was treated at [facility]. He was then sent to the senior living where he underwent therapy for 12 weeks. He has been discharged to home since March 27 and the developed new findings of weakness. For this reason he was brought into the emergency room and was seen in the ER by Dr. Chapman yesterday. He underwent a computed tomography scan of the brain results of which are as noted above. His neurological exam reveals him to have significant left-sided hemiplegia from his old stroke. Review of the CAT scan film however reveals slight areas of hypodensity in the right basal ganglia region. We've recommended a MRI of the brain for further evaluation. Would also recommend carotid Doppler ultrasound. He is currently on seizure prophylaxis and is taking Keppra 500 mg twice a day. He has had no reported seizures. Would recommend physical therapy and occupational therapy consultations for this patient as well. He is being treated for urinary tract infection as well. We will await his MRI of the brain to be done and we'll give further recommendations. If he is unable to have MRI of the brain we would recommend a follow-up CAT scan of the brain to be done for further assessment. His overall prognosis at this time remains very guarded. We will continue close neurological follow-up of this patient during this admission. Time with Patient: Greater than 30
[2017-04-25] MEDS: VANCOMYCIN 1,500 MG in SODIUM CHLORIDE 0.9% 250 ML IVPB SCH (22:34)
[2017-04-26] MEDS: PIPERACILLIN-TAZOBACTAM 3.375 GM in DEXTROSE/WATER 1 50ML.BAG IVPB SCH ×3 (01:35→20:12)
[2017-04-26] MEDS: LEVOTHYROXINE 50 MCG TAB PO SCH (05:51)
[2017-04-26] MEDS: VANCOMYCIN 1,500 MG in SODIUM CHLORIDE 0.9% 250 ML IVPB SCH ×3 (05:51→21:28)
[2017-04-26] MEDS: HYDROcodone/APAP 10-325MG 1 EACH TAB PO PRN ×2 (05:52→16:18)
[2017-04-26] MEDS: SODIUM CHLORIDE 0.9% 1,000 ML IV SCH ×2 (05:52→16:14)
[2017-04-26] MEDS: HEPARIN SODIUM,PORCINE 5,000 UNIT/ML 1 ML VIAL SQ SCH ×2 (07:43→20:15)
[2017-04-26] MEDS: levETIRAcetam 500 MG TAB PO SCH ×2 (07:43→20:15)
[2017-04-26] MEDS: PANTOPRAZOLE 40 MG TABLET PO SCH (07:44)
[2017-04-26] MEDS: GABAPENTIN 400 MG CAP PO SCH ×3 (07:44→20:15)
[2017-04-26] MEDS: FLUoxetine HCL 20 MG CAP PO SCH (07:44)
[2017-04-26] MEDS: IPRATROPIUM-ALBUTEROL 3 ML NEB INHALATION SCH ×3 (07:58→21:05)
[2017-04-26 08:04] LABS: Basophils % (A) 1 %; Eosinophils # (A) 0.1 k/uL (0-0.7); Eosinophils % (A) 1 %; HCT 39.2 % (39.0-53.0); HGB 13.5 gm/dL (13.0-17.5); Lymphocytes # (A) 1.1 k/uL (1.0-4.8); Lymphocytes % (A) 27 %; MCH 30.2 pg (25.0-35.0); MCHC 34.5 g/dL (31.0-37.0); MCV 87.8 fL (80.0-100.0); Mean Platelet Volume 8.7; Monocytes # (A) 0.2 k/uL (0-1.0); Monocytes % (A) 5 %; Neutrophils # (A) 2.8 k/uL (1.3-7.7); Neutrophils % (A) 65 %; RBC 4.47 m/uL (4.30-5.90); RDW 14.3 % (11.5-15.5); WBC 4.3 k/uL (3.8-10.6)
[2017-04-26 08:05] LABS: Anion Gap 7 mmol/L; Blood Urea Nitrogen 10 mg/dL (9-20); Calcium 8.7 mg/dL (8.4-10.2); Carbon Dioxide 24 mmol/L (22-30); Chloride 110 mmol/L (98-107); Glucose 124 mg/dL (74-99); Potassium 4.2 mmol/L (3.5-5.1); Sodium 141 mmol/L (137-145)
--- NOTE | 2017-04-26 08:44 | CDI ---
Last Revision, January 2017 Documentation Clarification Form Date: 04/26/2017 8:34:00 AM From: Jessy Orlando RN Admit Date: 04/24/2017 11:13:00 PM Patient Name: Virgilio Sharp Visit Number: [id number] ATTENTION: The Clinical Documentation Specialists (CDI) and [facility] Coding Staff appreciate your assistance in clarifying documentation. Please respond to the clarification below the line at the bottom and electronically sign. The CDI & [facility] Coding staff will review the response and follow-up if needed. Please note: Queries are made part of the Legal Health Record. If you have any questions, please contact the author of this message via ITS. Dr. Daniel Price, Encephalopathy is documented in the Neurology consultation note. History/Risk factors: Thyroid disorder, Hemorrhagic stroke, Cirrhosis, Hepatitis C admitted with pneumonia, UTI and sepsis Clinical Indicators: CT/MRI Brain: Large right side internal capsule infarct that appears new. There is new ethmoid and left maxillary sinusitis Treatment: Consults: Neurology IV Levofloxacin, IV Piperacillin, IV Vanco In your professional opinion, can you please clarify the specific type of encephalopathy, if known? Anoxic Encephalopathy Hypertensive Encephalopathy Metabolic Encephalopathy Septic Encephalopathy Causal Condition: Alcoholism, Hepatitis, other disease process? Other, please specify Unable to determine Please continue to document in your progress notes , below the line and/or discharge summary in order to capture severity of illness and risk of mortality. Include clinical findings that support your diagnosis. Metabolic Encephalopathy MTDD
[2017-04-26 09:10] LABS: Platelet Count 84 k/uL (150-450)
[2017-04-26] MEDS: LISINOPRIL 20 MG TAB PO SCH (09:27)
--- NOTE | 2017-04-26 11:08 | US ---
EXAMINATION TYPE: US carotid duplex BILAT DATE OF EXAM: 04/26/2017 COMPARISON: NONE CLINICAL HISTORY: Patient with right hemispheric stroke.. Left side impairment- Limbs. Facial numbne ss. EXAM MEASUREMENTS: RIGHT: Peak Systolic Velocity (PSV) cm/sec ----- Right CCA: 63.6 ----- Right ICA: 55.9 ----- Right ECA: 127.0 ICA/CCA ratio: 0.9 RIGHT: End Diastole cm/sec ----- Right CCA: 13.9 ----- Right ICA: 15.4 ----- Right ECA: 12.3 LEFT: Peak Systolic Velocity (PSV) cm/sec ----- Left CCA: 77.6 ----- Left ICA: 80.1 ----- Left ECA: 168.7 ICA/CCA ratio: 1.0 LEFT: End Diastole cm/sec ----- Left CCA: 14.9 ----- Left ICA: 24.1 ----- Left ECA: 13.0 VERTEBRALS (direction of flow): Right Vertebral: Antegrade Left Vertebral: Antegrade Rhythm: Normal Bilateral wall thickening. No significant stenosis. Slight right ECA elevated velocity. Elevated l eft ECA velocity. Plaque in right bulb and prox ICA. IMPRESSION: 1. No significant flow-limiting stenosis. 2. Atheromatous plaquing and intimal thickening present bilaterally Criteria for Assigning % of Stenosis / Diameter reduction (Estimation based on the indirect measurements of the internal carotid artery velocities (ICA PSV). 1. Normal (no stenosis)=ICA PSV < 125 cm/s: ratio < 2.0: ICA EDV<40 cm/s. 2. Less than 50% stenosis=ICA PSV < 125 cm/s: ratio < 2.0: ICA EDV<40 cm/s. 3. 50 to 69% stenosis=ICA PSV of 125 to 230 cm/s: ration 2.0 ? 4.0: ICA EDV 40-100 cm/s. 4. Greater than 70% stenosis to near occlusion= ICA PSV > 230 cm/s: ratio > 4.0: ICA EDV > 100 cm/s. 5. Near occlusion= ICA PSV velocities may be low or undetectable: variable ratio and ICA EDV. 6. Total occlusion=unable to detect flow.
--- NOTE | 2017-04-26 11:56 | MR ---
EXAMINATION TYPE: MR brain wo con DATE OF EXAM: 04/26/2017 COMPARISON: NONE HISTORY: Left leg weakness, right hemispheric stroke per order. Patient admitted for left-sided weak ness 2 days earlier. History of brain bleed January 09, 2017. TECHNIQUE: Multiplanar, multisequence imaging of the brain and brainstem is performed without IV cont rast. FINDINGS: Diffusion weighted images demonstrate no evidence of a recent infarct or other diffusion abnormality. There is no extraaxial fluid collection or significant white matter signal abnormality. The ventricu lar system and cisternal spaces are normal in size and appearance. The brain volume is age appropria te. There is large old infarct right lai radiata with basal ganglia involvement redemonstrated. Midline structures demonstrate normal morphology. The craniocervical junction appears within normal limits. Normal vascular flow voids are present. Moderate mucosal thickening in the left maxillary sin us is redemonstrated. Mild mucosal thickening bilateral ethmoid sinuses is again seen. IMPRESSION: 1. No evidence of a recent infarct. Large old right-sided infarct redemonstrated. No significant stevenson ge from recent CT study.
--- NOTE | 2017-04-26 16:15 | PN ---
PROGRESS NOTE DATE OF SERVICE: 04/26/2017 This 62 -year-old gentleman admitted with weakness and cough had possibly left lower pneumonia possibly aspiration in nature. The patient also had significant weakness of the left side, a new stroke. This sensorium was slightly improved at this time. Patient also had a UTI also. Patient on broad IV antibiotics at this time. The patient verbalizes the patient does not want to go to a rehab at this time. PAST MEDICAL HISTORY: Reviewed. REVIEW OF SYSTEMS: CARDIOVASCULAR: No angina or palpitations. Respiratory: As mentioned earlier. : No dysuria. GI: As mentioned earlier. Nervous system: Diffusely weak. CURRENT MEDICATIONS: Reviewed and include: 1. Tylenol 650 q.6h p.r.n. 2. [place] 10 mg p.r.n. 3. DuoNeb q.i.d. and p.r.n. 4. Prozac 20 mg p.o. daily. 5. Neurontin 800 mg p.o. t.i.d. 6. Heparin 5000 subcu b.i.d. 7. Keppra 500 mg p.o. b.i.d. 8. Synthroid 50 mcg. 9. Zestril 20 mg p.o. daily. 10.Protonix 40 mg daily. 11.Zosyn 3.37 IV q.8h. 12.Vancomycin 1.5 IV q.8h. PHYSICAL EXAM: Patient is alert, oriented x2, mildly dysarthric. Pulse 80, blood pressure 140/ 97, respiration 16, temperature 98.2, pulse ox 98% on room air. HEENT is conjunctivae normal. Oral mucosa moist. Neck is no jugular venous distention. No carotid bruit. No lymph node enlargement. Cardiovascular systems: S1, S2 muffled. Respiratory : Breath sounds diminished in the bases. A few scattered rhonchi and crackles. ABDOMEN: Soft, nontender. Legs are no edema. No swelling. Central nervous system: Unchanged left-sided weakness. LAB STUDIES: WBC 4.3, platelets 84. Cultures are pending at this time. Influenza negative cultures. Urine cultures coag-negative Staph. ASSESSMENT: 1. Acute urinary tract infection with sepsis present on admission. 2. Acute left lower lobe pneumonia possibly aspiration. 3. Increased creatinine kinase with mild rhabdomyolysis. 4. Right hemispheric emergent stroke causing left-sided weakness. 5. History of cirrhosis of liver. 6. History of hepatitis C. 7. History of hypothyroidism. 8. History of hernia surgery. 9. Degenerative joint disease. 10.NO CODE, NO CPR, NO VENT. 11.Thrombocytopenia. RECOMMENDATIONS AND DISCUSSION: In this 62-year-old gentleman who presented with multiple complex medical issues , we will monitor the patient closely, continue the current medications, management and symptomatic treatment. Otherwise at this time, I recommend broad-spectrum IV antibiotics. I would recommend monitor labs closely. Pulmonary and neurology has been consulted. As mentioned earlier the patient is not keen on going for rehab. However, I will recommend PT/OT evaluation. Continue to monitor. Prognosis guarded because of multiple complex medical issues. See orders for details. Further recommendations to follow. MMODL / IJN: [id number] / [id number]
--- NOTE | 2017-04-26 18:28 | P.CNPUL ---
History of Present Illness Consult date: 04/26/17 Requesting physician: Daniel Price Reason for consult: cough, abnormal CXR/CT, other Chief complaint: cough, fatigue, slurring words, increased weakness History of present illness: This is a 62-year-old white male patient of Dr. Beck, presented to the emergency department on 04/24/2017 at 2114, with complaints of increasing weakness, nonproductive cough, generalized fatigue, slurring of his words. Patient had a recent hemorrhagic stroke in December 2016, was treated at [facility], and was discharged to rehab afterwards. Does complain of a slight headache on and off. Today he is complaining of some left facial numbness. Denied any fever or chills at home. denies any chest tenderness, denies any chest congestion. He states since his stroke he has been on a mechanical soft diet, had some difficulty swallowing, but did have a swallow evaluation 4 weeks ago, which he passed. Denies any dyspnea. he is on room air, with pulse ox of 94%. Was febrile on admission with a temp of 101.1 degrees Fahrenheit. Chest x-ray taken in the ED showed mild infiltrate at the left lung base atelectasis at the left lung base. No evidence of heart failure. Brain CT showed a large right-sided internal capsule infarct, which was new, compared to last CT brain from 2013 taken at this institution. Follow-up chest x-ray from showed continued airspace disease at the left lung base. Influenza screen was negative. No leukocytosis. Patient was suspected to have aspiration pneumonia and acute urinary tract infection. He was placed on broad-spectrum antibiotics combination of Zosyn, Levaquin and vancomycin. We were asked to see the patient in consultation in regards to possibility of left lower lobe pneumonia compared to aspiration. Review of Systems All systems: negative Constitutional: Denies chills, Denies fever Eyes: denies blurred vision, denies pain Ears, nose, mouth and throat: Denies headache, Denies sore throat Cardiovascular: Denies chest pain, Denies shortness of breath Respiratory: Reports cough with sputum, Denies cough Gastrointestinal: Denies abdominal pain, Denies diarrhea, Denies nausea, Denies vomiting Musculoskeletal: Denies myalgias Integumentary: Denies pruritus, Denies rash Neurological: Reports balance difficulties, Reports change in speech, Reports motor disturbance, Reports paralysis, Reports spasticity, Denies numbness, Denies weakness Psychiatric: Denies anxiety, Denies depression Endocrine: Denies fatigue, Denies weight change Past Medical History Past Medical History: Thyroid Disorder Additional Past Medical History / Comment(s): hemorrhagic stroke, cirrohsis, hep c History of Any Multi-Drug Resistant Organisms: None Reported Past Surgical History: Hernia Repair, Orthopedic Surgery Additional Past Surgical History / Comment(s): bilat rotator cuff, carpal tunnel surgery, neck surgery Past Anesthesia/Blood Transfusion Reactions: No Reported Reaction Past Psychological History: No Psychological Hx Reported Smoking Status: Former smoker Past Alcohol Use History: None Reported Past Drug Use History: None Reported Medications and Allergies Home Medications Medication Instructions Recorded Confirmed Type FLUoxetine HCL [PROzac] 20 mg PO DAILY 04/24/17 04/24/17 History Gabapentin [Neurontin] 800 mg PO TID 04/24/17 04/24/17 History Levothyroxine Sodium [Synthroid] 50 mcg PO DAILY 04/24/17 04/24/17 History Lisinopril [Zestril] 20 mg PO DAILY 04/24/17 04/24/17 History levETIRAcetam [Keppra] 500 mg PO Q12HR 04/24/17 04/24/17 History Allergies Allergy/AdvReac Type Severity Reaction Status Date / Time tramadol Allergy Severe SEIZURE Verified 04/24/17 21:24 black rubber Allergy Severe Dyspnea, Uncoded 04/24/17 21:24 Swelling Physical Exam Vitals: Vital Signs Temp Pulse Pulse Resp BP Pulse Ox 04/26/17 16:46 80 04/26/17 16:36 78 04/26/17 15:00 98.0 F 92 17 143/91 94 L 04/26/17 08:09 88 04/26/17 08:01 80 04/26/17 07:00 98.6 F 80 16 119/73 92 L 04/26/17 00:28 98.5 F 86 17 109/71 92 L 04/25/17 20:30 78 04/25/17 20:18 80 04/25/17 19:33 97.8 F 83 18 135/83 95 Intake and Output 04/26/17 04/26/17 04/26/17 06:59 14:59 22:59 Output Total 200 300 Balance -200 -300 Output: Urine 200 300 Other: # Voids 3 2 GENERAL EXAM: Alert, pleasant, 62-year-old white male, comfortable in no apparent distress. HEAD: Normocephalic/atraumatic. EYES: Normal reaction of pupils, equal size. Conjunctiva pink, sclera white. NOSE: Clear with pink turbinates. THROAT: No erythema or exudates. NECK: No masses, no JVD, no thyroid enlargement, no adenopathy. CHEST: No chest wall deformity. Symmetrical expansion. LUNGS: Equal air entry with no crackles, wheeze, rhonchi or dullness.Diminished breath sounds at the bases CVS: Regular rate and rhythm, normal S1 and S2, no gallops, no murmurs, no rubs ABDOMEN: Soft, nontender. No hepatosplenomegaly, normal bowel sounds, no guarding or rigidity. EXTREMITIES: No clubbing, no edema, no cyanosis, 2+ pulses and upper and lower extremities. MUSCULOSKELETAL: Muscle strength and tone normal. SPINE: No scoliosis or deformity SKIN: No rashes CENTRAL NERVOUS SYSTEM: Alert and oriented -3. Left-sided weakness noted PSYCHIATRIC: Alert and oriented -3. Appropriate affect. Intact judgment and insight. Results - Laboratory Findings CBC and BMP: 04/26/17 07:17 04/26/17 07:17 PT/INR, D-dimer PT 11.8 sec (9.0-12.0) 04/24/17 21:54 INR 1.2 (<1.2) H 04/24/17 21:54 Abnormal lab findings: Abnormal Labs 04/24/17 04/24/17 04/24/17 21:54 21:54 21:54 Plt Count 105 L INR Chloride Glucose 119 H Total Creatine Kinase 1405 H Ur Leukocyte Esterase Urine WBC 04/24/17 04/24/17 04/26/17 21:54 21:54 07:17 Plt Count 84 L INR 1.2 H Chloride Glucose Total Creatine Kinase Ur Leukocyte Esterase Large H Urine WBC 26 H 04/26/17 07:17 Plt Count INR Chloride 110 H Glucose 124 H Total Creatine Kinase Ur Leukocyte Esterase Urine WBC - Diagnostic Findings Chest x-ray: report reviewed Additional studies: Brain CT, brain MRI reviewed, twelve-lead EKG reviewed Assessment and Plan Plan: Assessment: #1.Left lower lobe focal airspace disease, consistent with left lower lobe pneumonia, secondary to possible aspiration, although the patient states he did pass a swallow evaluation several weeks ago. Denies any dyspnea, denies any chest wall tenderness, denies any congestion, sputum production. #2. Febrile illness, slurred speech, weakness, fatigue and encephalopathy present on admission, possibly related to acute urinary tract infection and pneumonia #3. History of right hemispheric hemorrhagic CVA causing left-sided weakness in December 2016. #4. History of liver cirrhosis and hepatitis C #5. History of hypothyroidism #6. History of degenerative joint disease #7. Thrombocytopenia, possibly related to chronic liver disease #8. Elevated creatinine kinase, possibly related to mild rhabdomyolysis Plan: Agree with speech evaluation, maintain aspiration precautions, continue current antibiotic coverage. He is afebrile, denies dyspnea, there is no evidence of leukocytosis. Continue nebulized treatments, we'll continue to follow with you I performed a history & physical examination of the patient and discussed their management with my nurse practitioner, Yolis Espino. I reviewed the nurse practitioner's note and agree with the documented findings and plan of care. Lung sounds are positive for clear lung sounds. The findings and the impression was discussed with the patient. I attest to the documentation by the nurse practitioner. Time with Patient: Greater than 30
--- NOTE | 2017-04-26 18:32 | P.PN ---
Subjective Progress Note Date: 04/26/17 This patient is a 62-year-old right-handed white male who was admitted hospital yesterday with symptoms of generalized weakness and history of recent intracerebral hemorrhage and hemorrhagic stroke which she suffered in December of last year. Patient underwent a computed tomography scan of the brain in the emergency room which revealed evidence of a large right hemispheric stroke. He complained of generalized weakness and had undergone extensive rehabilitation at [facility] for 12 weeks. The patient was discharged from there in March to home. He is living at home with the help of his son. There was concern that the patient may have suffered a new area of stroke due to his weakness. He has significant left-sided hemiplegia from his initial stroke of last year. He has not appreciated much improvement with this condition. Patient was sent for MRI of the brain today which reveals no evidence of recent infarct. There was a large old right sided infarction redemonstrated with no change from previous CAT scan study. We reviewed the results of the CAT scan today with the patient in detail. He was offered to possibly consider rehab placement but he wants to rather go home and have help from his son. We will continue to follow his progress closely during this admission. He is being ready for possible discharge home soon. Objective - Vital Signs Vital signs: Vital Signs Temp 98.0 F 04/26/17 15:00 Pulse 80 04/26/17 16:46 Resp 17 04/26/17 15:00 BP 143/91 04/26/17 15:00 Pulse Ox 94 L 04/26/17 15:00 Intake & Output 04/25/17 04/26/17 04/26/17 18:59 06:59 18:59 Intake Total 1020 Output Total 200 300 Balance 1020 -200 -300 Intake: Oral 1020 Output: Urine 200 300 Other: Voiding Method Urinal Incontinent # Voids 1 1 2 - Exam Physical examination: PHYSICAL EXAMINATION: Patient is resting comfortably in bed. VITAL SIGNS: Blood pressure is [143/90]. Heart rate is [92]. Respiration is [17] . Temperature is [98.0]. HEENT: Head is atraumatic, neck is supple, there were no carotid bruits. CHEST: Lungs are clear to auscultation and percussion. CARDIAC: S1, S2 normal rate and rhythm. There is no murmur. ABDOMEN: Soft and nontender. Bowel sounds are present. EXTREMITIES: There is no pedal edema. Peripheral pulses are present. Neurological examination: Patient's neurological examination is unchanged from yesterday. He has a dense left-sided hemiplegia. His speech is clear with no evidence of any aphasia. His remaining neurological examination is unchanged. - Labs CBC & Chem 7: 04/26/17 07:17 04/26/17 07:17 Labs: Abnormal Lab Results - Last 24 Hours (Table) 04/26/17 04/26/17 Range/Units 07:17 07:17 Plt Count 84 L (150-450) k/uL Chloride 110 H (98-107) mmol/L Glucose 124 H (74-99) mg/dL Microbiology - Last 24 Hours (Table) 04/24/17 21:54 Urine Culture - Preliminary Urine,Voided Coagulase Negative Staph 04/24/17 21:54 Blood Culture - Preliminary Blood No Growth after 24 hours Assessment and Plan (1) History of hemorrhagic stroke with residual hemiplegia Current Visit: Yes Status: Acute Code(s): I69.359 - HEMIPLGA FOLLOWING CEREBRAL INFARCTION AFFECTING UNSP SIDE SNOMED Code(s): 845682598 (2) Acute encephalopathy Current Visit: Yes Status: Acute Code(s): G93.40 - ENCEPHALOPATHY, UNSPECIFIED SNOMED Code(s): 46963520 (3) UTI (urinary tract infection) Current Visit: Yes Status: Acute Code(s): N39.0 - URINARY TRACT INFECTION, SITE NOT SPECIFIED SNOMED Code(s): 04845780 (4) Pneumonia Current Visit: Yes Status: Acute Code(s): J18.9 - PNEUMONIA, UNSPECIFIED ORGANISM SNOMED Code(s): 792061629 Plan: This patient is a 62-year-old male who was admitted hospital with increased weakness and left lobe pneumonia. He was felt he may have had aspiration pneumonia and he is being followed up by pulmonary medicine. The patient's initial symptoms was one of weakness and altered mental status. He is being treated for urinary tract infection. He was sent for a computed tomography scan of the brain in the emergency room which revealed a question of a new area of infarction. He subsequently had MRI of the brain today results which are noted above. There is no evidence of new or acute infarction. We reviewed the results of the MRI today with the patient. Neurologically he remains very stable. He has a dense left-sided hemiplegia from his previous stroke which she suffered in December of last year. Patient does not want to go for rehab placement but would rather go home with assistance from his son. We will continue to follow along his course during this admission. His overall prognosis at this time remains guarded.
[2017-04-27] MEDS: PIPERACILLIN-TAZOBACTAM 3.375 GM in DEXTROSE/WATER 1 50ML.BAG IVPB SCH ×3 (01:21→16:07)
[2017-04-27] MEDS: SODIUM CHLORIDE 0.9% 1,000 ML IV SCH ×3 (01:22→22:20)
[2017-04-27] MEDS ORDERED: VANCOMYCIN TROUGH DUE 1 EACH MISC MISCELLANE ONE (05:00)
[2017-04-27] MEDS: VANCOMYCIN 1,500 MG in SODIUM CHLORIDE 0.9% 250 ML IVPB SCH (05:35)
[2017-04-27 05:51] LABS: Basophils % (A) 1 %; Eosinophils # (A) 0.1 k/uL (0-0.7); Eosinophils % (A) 2 %; HCT 39.7 % (39.0-53.0); HGB 13.7 gm/dL (13.0-17.5); Lymphocytes # (A) 0.8 k/uL (1.0-4.8); Lymphocytes % (A) 24 %; MCH 31.5 pg (25.0-35.0); MCHC 34.5 g/dL (31.0-37.0); MCV 91.4 fL (80.0-100.0); Mean Platelet Volume 8.3; Monocytes # (A) 0.2 k/uL (0-1.0); Monocytes % (A) 6 %; Neutrophils # (A) 2.2 k/uL (1.3-7.7); Neutrophils % (A) 66 %; RBC 4.34 m/uL (4.30-5.90); RDW 14.3 % (11.5-15.5); WBC 3.4 k/uL (3.8-10.6)
[2017-04-27 05:53] LABS: Platelet Count 85 k/uL (150-450)
[2017-04-27] MEDS: LEVOTHYROXINE 50 MCG TAB PO SCH (06:01)
[2017-04-27] MEDS: HYDROcodone/APAP 10-325MG 1 EACH TAB PO PRN ×2 (06:01→13:34)
[2017-04-27 06:13] LABS: Anion Gap 10 mmol/L; Blood Urea Nitrogen 11 mg/dL (9-20); Carbon Dioxide 23 mmol/L (22-30); Chloride 109 mmol/L (98-107); Glucose 142 mg/dL (74-99); Potassium 4.1 mmol/L (3.5-5.1); Sodium 142 mmol/L (137-145)
[2017-04-27] MEDS: IPRATROPIUM-ALBUTEROL 3 ML NEB INHALATION SCH ×3 (08:15→18:56)
--- NOTE | 2017-04-27 13:07 | P.PN ---
<Zelda Mark - Last Filed: 04/27/17 13:01> Subjective Progress Note Date: 04/27/17 Principal diagnosis: Altered mental status secondary to left lower lobe pneumonia possible aspiration , urinary tract infection This is a 62-year-old white male patient of Dr. Beck, presented to the emergency department on 04/24/2017 at 2114, with complaints of increasing weakness, nonproductive cough, generalized fatigue, slurring of his words. Patient had a recent hemorrhagic stroke in December 2016, was treated at [facility], and was discharged to rehab afterwards. Does complain of a slight headache on and off. Today he is complaining of some left facial numbness. Denied any fever or chills at home. denies any chest tenderness, denies any chest congestion. He states since his stroke he has been on a mechanical soft diet, had some difficulty swallowing, but did have a swallow evaluation 4 weeks ago, which he passed. Denies any dyspnea. he is on room air, with pulse ox of 94%. Was febrile on admission with a temp of 101.1 degrees Fahrenheit. Chest x-ray taken in the ED showed mild infiltrate at the left lung base atelectasis at the left lung base. No evidence of heart failure. Brain CT showed a large right-sided internal capsule infarct, which was new, compared to last CT brain from 2013 taken at this institution. Follow-up chest x-ray from showed continued airspace disease at the left lung base. Influenza screen was negative. No leukocytosis. Patient was suspected to have aspiration pneumonia and acute urinary tract infection. He was placed on broad-spectrum antibiotics combination of Zosyn, Levaquin and vancomycin. We were asked to see the patient in consultation in regards to possibility of left lower lobe pneumonia compared to aspiration. The patient is seen again today 04/27/2017 in follow-up in the regular medical floor. He is currently sitting up in a chair at the bedside. He is awake and alert in no acute distress. He has been having some ongoing issues with dysphagia. He's been choking on water as well. MRI of the brain revealed no evidence of a recent infarct however there is a large old right-sided infarct redemonstrated. No significant change from previous. He denies any worsening shortness of breath, or congestion. He has a loose nonproductive cough. He has been afebrile. Maintaining O2 saturations in the 90s on room air. No leukocytosis. Urine culture preliminary coag-negative staph. He is currently on vancomycin and Zosyn. Objective - Vital Signs Vital signs: Vital Signs Temp 97.7 F 04/27/17 07:00 Pulse 84 04/27/17 12:37 Resp 16 04/27/17 07:00 BP 134/81 04/27/17 07:00 Pulse Ox 92 L 04/27/17 07:00 Intake & Output 04/26/17 04/27/17 04/27/17 18:59 06:59 18:59 Intake Total 480 Output Total 300 1 Balance -300 479 Intake: Oral 480 Output: Urine 300 1 Other: Voiding Method Urinal Urinal Incontinent Incontinent # Voids 2 1 - Exam GENERAL EXAM: Alert, pleasant, 62-year-old white male, comfortable in no apparent distress. HEAD: Normocephalic/atraumatic. EYES: Normal reaction of pupils, equal size. Conjunctiva pink, sclera white. NOSE: Clear with pink turbinates. THROAT: No erythema or exudates. NECK: No masses, no JVD, no thyroid enlargement, no adenopathy. CHEST: No chest wall deformity. Symmetrical expansion. LUNGS: Equal air entry with no crackles, wheeze, rhonchi or dullness.Diminished breath sounds at the bases CVS: Regular rate and rhythm, normal S1 and S2, no gallops, no murmurs, no rubs ABDOMEN: Soft, nontender. No hepatosplenomegaly, normal bowel sounds, no guarding or rigidity. EXTREMITIES: No clubbing, no edema, no cyanosis, 2+ pulses and upper and lower extremities. MUSCULOSKELETAL: Muscle strength and tone normal. SPINE: No scoliosis or deformity SKIN: No rashes CENTRAL NERVOUS SYSTEM: Alert and oriented -3. Left-sided weakness noted PSYCHIATRIC: Alert and oriented -3. Appropriate affect. Intact judgment and insight. - Labs CBC & Chem 7: 04/27/17 05:32 04/27/17 05:32 Labs: Abnormal Lab Results - Last 24 Hours (Table) 04/27/17 04/27/17 Range/Units 05:32 05:32 WBC 3.4 L (3.8-10.6) k/uL Plt Count 85 L (150-450) k/uL Lymphocytes # 0.8 L (1.0-4.8) k/uL Chloride 109 H (98-107) mmol/L Glucose 142 H (74-99) mg/dL Microbiology - Last 24 Hours (Table) 04/24/17 21:54 Blood Culture - Preliminary Blood No Growth after 48 hours 04/24/17 21:54 Urine Culture - Preliminary Urine,Voided Coagulase Negative Staph Assessment and Plan Assessment: Assessment: #1.Left lower lobe focal airspace disease, consistent with left lower lobe pneumonia, secondary to possible aspiration, although the patient states he did pass a swallow evaluation several weeks ago. Denies any dyspnea, denies any chest wall tenderness, denies any congestion, sputum production. #2. Febrile illness, slurred speech, weakness, fatigue and encephalopathy present on admission, possibly related to acute urinary tract infection and pneumonia #3. History of right hemispheric hemorrhagic CVA causing left-sided weakness in December 2016. #4. History of liver cirrhosis and hepatitis C #5. History of hypothyroidism #6. History of degenerative joint disease #7. Thrombocytopenia, possibly related to chronic liver disease #8. Elevated creatinine kinase, possibly related to mild rhabdomyolysis Plan: The patient was seen and evaluated by Dr. Ortiz. There is concern regarding probable aspiration. He remains on aspiration precautions. We'll continue with bronchodilators. Continue with antibiotics. Await final culture results. We will increase his activity as tolerated. We'll continue to follow and make further recommendations based on his clinical status. I, the cosigning physician, performed a history & physical examination of the patient. Lungs sounds have crackles in the left lower lobe. Maintaining good O2 saturations in the 90s on room air. I discussed the assessment and plan of care with my nurse practitioner, Zelda Mark. I attest to the above note as dictated by her. <Laura Ortiz - Last Filed: 04/27/17 15:50> Objective - Vital Signs Vital signs: Vital Signs Temp 97.5 F L 04/27/17 14:20 Pulse 98 04/27/17 14:20 Resp 18 04/27/17 14:20 BP 125/85 04/27/17 14:20 Pulse Ox 93 L 04/27/17 14:20 Intake & Output 04/26/17 04/27/17 04/27/17 18:59 06:59 18:59 Intake Total 1010 Output Total 300 1 Balance -300 1009 Intake: Intake, IV Titration 50 Amount Piperacillin-Tazobactam 3 50 .375 gm In Dextrose/Water 1 50ml.bag @ 12.5 mls/hr IVPB Q8HR [facility] Rx#: [id number] Oral 960 Output: Urine 300 1 Other: Voiding Method Urinal Urinal Incontinent Incontinent # Voids 2 1 3 # Bowel Movements 2 - Labs CBC & Chem 7: 04/27/17 05:32 04/27/17 05:32 Labs: Abnormal Lab Results - Last 24 Hours (Table) 04/27/17 04/27/17 Range/Units 05:32 05:32 WBC 3.4 L (3.8-10.6) k/uL Plt Count 85 L (150-450) k/uL Lymphocytes # 0.8 L (1.0-4.8) k/uL Chloride 109 H (98-107) mmol/L Glucose 142 H (74-99) mg/dL Microbiology - Last 24 Hours (Table) 04/24/17 21:54 Blood Culture - Preliminary Blood No Growth after 48 hours 04/24/17 21:54 Urine Culture - Preliminary Urine,Voided Coagulase Negative Staph Assessment and Plan Assessment: Patient is seen in the joint evaluation along with the nurse practitioner. The patient doing well. Patient is being treated for a questionable aspiration pneumonia involving about basis. We will stay on the case for another 24 hours to make sure the patient remains stable and for now I do not see any active pulmonary issues as the patient is being treated for his pneumonia.
[2017-04-27] MEDS: levETIRAcetam 500 MG TAB PO SCH ×2 (13:15→22:18)
[2017-04-27] MEDS: HEPARIN SODIUM,PORCINE 5,000 UNIT/ML 1 ML VIAL SQ SCH ×2 (13:15→22:18)
[2017-04-27] MEDS: LISINOPRIL 20 MG TAB PO SCH (13:15)
[2017-04-27] MEDS: PANTOPRAZOLE 40 MG TABLET PO SCH (13:16)
[2017-04-27] MEDS: GABAPENTIN 400 MG CAP PO SCH ×3 (13:16→22:18)
[2017-04-27] MEDS: FLUoxetine HCL 20 MG CAP PO SCH (13:16)
--- NOTE | 2017-04-27 17:23 | FL ---
EXAMINATION TYPE: FL barium swallow w video DATE OF EXAM: 04/27/2017 COMPARISON: NONE HISTORY: Possible aspiration. TECHNIQUE: Fluoroscopy. FINDINGS: Fluoroscopic guidance was provided for the procedure performed in conjunction with the [facility] ech pathology department. Please see complete report forthcoming from the Speech Pathology departmen t. Various consistencies from thin liquid to solids were administered. Fluoroscopy time 1 minute 28 seconds minutes. Number of images: 0. No aspiration or penetration was evident with the tested consistencies. No significant pooling was observed in the vallecula. There was normal propulsion of the bolus. IMPRESSION: 1. No aspiration evident. Please see complete report forthcoming from the speech pathology department .
[2017-04-27] MEDS ORDERED: VANCOMYCIN 1,500 MG in SODIUM CHLORIDE 0.9% 250 ML IVPB SCH (20:00)
--- NOTE | 2017-04-27 22:26 | P.PN ---
Subjective Progress Note Date: 04/27/17 This patient is a 62-year-old right-handed white male who was admitted hospital yesterday with symptoms of generalized weakness and history of recent intracerebral hemorrhage and hemorrhagic stroke which she suffered in December of last year. Patient underwent a computed tomography scan of the brain in the emergency room which revealed evidence of a large right hemispheric stroke. He complained of generalized weakness and had undergone extensive rehabilitation at [facility] for 12 weeks. The patient was discharged from there in March to home. He is living at home with the help of his son. There was concern that the patient may have suffered a new area of stroke due to his weakness. He has significant left-sided hemiplegia from his initial stroke of last year. He has not appreciated much improvement with this condition. Patient was sent for MRI of the brain today which reveals no evidence of recent infarct. There was a large old right sided infarction redemonstrated with no change from previous CAT scan study. We reviewed the results of the CAT scan today with the patient in detail. He was offered to possibly consider rehab placement but he wants to rather go home and have help from his son. Patient was seen by pulmonary medicine today. He remains afebrile. His oxygen saturations are in the 90s. His urine culture was positive for coagulase- negative staph. He is currently on accommodation of vancomycin and Zosyn. Neurologically the patient shows no new changes. There is no evidence of recurrent stroke based on his MRI of the brain that was just completed. We will continue to follow his progress closely during this admission. He is being ready for possible discharge home soon. Objective - Vital Signs Vital signs: Vital Signs Temp 97.5 F L 04/27/17 14:20 Pulse 98 04/27/17 14:20 Resp 18 04/27/17 14:20 BP 125/85 04/27/17 14:20 Pulse Ox 93 L 04/27/17 14:20 Intake & Output 04/27/17 04/27/17 04/28/17 06:59 18:59 06:59 Intake Total 1010 Output Total 1 Balance 1009 Intake: Intake, IV Titration 50 Amount Piperacillin-Tazobactam 3 50 .375 gm In Dextrose/Water 1 50ml.bag @ 12.5 mls/hr IVPB Q8HR [facility] Rx#: [id number] Oral 960 Output: Urine 1 Other: Voiding Method Urinal Urinal Incontinent Incontinent # Voids 1 3 # Bowel Movements 2 - Exam Physical examination: PHYSICAL EXAMINATION: Patient is resting comfortably in bed. VITAL SIGNS: Blood pressure is [125/85]. Heart rate is [98]. Respiration is [18] . Temperature is [97.5]. HEENT: Head is atraumatic, neck is supple, there were no carotid bruits. CHEST: Lungs are clear to auscultation and percussion. CARDIAC: S1, S2 normal rate and rhythm. There is no murmur. ABDOMEN: Soft and nontender. Bowel sounds are present. EXTREMITIES: There is no pedal edema. Peripheral pulses are present. Neurological examination: Patient's neurological examination is unchanged from yesterday. He has a dense left-sided hemiplegia. His speech is clear with no evidence of any aphasia. His remaining neurological examination is unchanged. - Labs CBC & Chem 7: 04/27/17 05:32 04/27/17 05:32 Labs: Abnormal Lab Results - Last 24 Hours (Table) 04/27/17 04/27/17 Range/Units 05:32 05:32 WBC 3.4 L (3.8-10.6) k/uL Plt Count 85 L (150-450) k/uL Lymphocytes # 0.8 L (1.0-4.8) k/uL Chloride 109 H (98-107) mmol/L Glucose 142 H (74-99) mg/dL Microbiology - Last 24 Hours (Table) 04/24/17 21:54 Blood Culture - Preliminary Blood No Growth after 48 hours Assessment and Plan (1) History of hemorrhagic stroke with residual hemiplegia Current Visit: Yes Status: Acute Code(s): I69.359 - HEMIPLGA FOLLOWING CEREBRAL INFARCTION AFFECTING UNSP SIDE SNOMED Code(s): 409400570 (2) Acute encephalopathy Current Visit: Yes Status: Acute Code(s): G93.40 - ENCEPHALOPATHY, UNSPECIFIED SNOMED Code(s): 49337490 (3) UTI (urinary tract infection) Current Visit: Yes Status: Acute Code(s): N39.0 - URINARY TRACT INFECTION, SITE NOT SPECIFIED SNOMED Code(s): 05931599 (4) Pneumonia Current Visit: Yes Status: Acute Code(s): J18.9 - PNEUMONIA, UNSPECIFIED ORGANISM SNOMED Code(s): 046313976 Plan: This patient is a 62-year-old male who recently suffered a large right hemispheric stroke in December 2016. He has been left with significant left- sided hemiplegia following his stroke. There was concern for new areas of stroke on his CAT scan of the brain. He was sent for an MRI of the brain which revealed no evidence of recent infarct. There was evidence of his old lack right sided infarct with no acute changes. The patient is being treated for aspiration pneumonia. He is on antibiotic coverage for this. Neurologically there is been no new changes. We will continue to monitor his progress closely. Patient wishes to go home for ongoing therapy at home rather than subacute rehab. We will continue to follow him closely during this admission. His overall prognosis at this time remains guarded.
--- NOTE | 2017-04-27 23:47 | PN ---
PROGRESS NOTE DATE OF SERVICE: 04/27/2017 PRESENTING COMPLAINT: Tired. INTERVAL HISTORY: Patient was admitted with left lower lobe pneumonia, suspected to be aspiration. The patient did have a swallow test done recently that was negative. The patient does have trouble, especially with thin liquids. Feels a bit tired. REVIEW OF SYSTEMS: Done for constitutional, cardiovascular, GI, pulmonary; relevant findings as above. CURRENT MEDICATIONS: Current medications are reviewed that include: 1. DuoNeb. 2. Neurontin. 3. Keppra. 4. Synthroid. 5. IV Zosyn. 6. Vancomycin. PHYSICAL EXAMINATION: Afebrile. Pulse 98, respiration 18, blood pressure 125/85, pulse ox 93%. GENERAL APPEARANCE: Sitting up. EYES: Pupils equal. Conjunctivae normal. HEENT: External appearance of nose and ears normal. Oral cavity normal. NECK: JVD unable to assess. RESPIRATORY: Effort normal. LUNGS: Slightly decreased breath sounds in the left base. CARDIOVASCULAR: First and second sounds normal. No edema. ABDOMEN: Soft, non-tender. Liver and spleen not palpable. PSYCHIATRY: Awake. Answering simple questions. INVESTIGATIONS: White count 3.4, hemoglobin 13.7, potassium 4.1. BUN and creatinine are normal. MRI of the brain from yesterday shows a large old infarct involving the right lai radiata with basal ganglia involvement. Modified barium swallow was negative for any aspiration. Carotid Doppler showed no significant stenosis. ASSESSMENT: 1. Left lower lobe pneumonia suspected to be aspiration, responding to antibiotics. 2. Suspect intermittent dysphagia, even though it is not showing up on the CT scan, given that patient does choke at times on thin liquids; for example, water. 3. Sepsis from pneumonia, present on admission, now clinically improved. 4. Metabolic encephalopathy on presentation, now improved. 5. Right internal capsule hemorrhagic stroke causing left-sided weakness in December 2016. 6. Liver cirrhosis with hepatitis C. 7. Hypothyroidism. 8. Degenerative joint disease. 9. Thrombocytopenia, probably multifactorial. 10.Intermittent dysphagia from stroke. PLAN: The patient has been afebrile for over 48 hours. Will discontinue patient's vancomycin and switch the patient to Augmentin. Other medication and treatment plan is to continue. Any diet recommendations by Speech Therapy will be followed. MMODL / IJN: [id number] /
[2017-04-28] MEDS: LEVOTHYROXINE 50 MCG TAB PO SCH (05:27)
[2017-04-28 07:10] LABS: Basophils % (A) 1 %; Eosinophils # (A) 0.1 k/uL (0-0.7); Eosinophils % (A) 2 %; HCT 39.4 % (39.0-53.0); HGB 13.6 gm/dL (13.0-17.5); Lymphocytes # (A) 1.2 k/uL (1.0-4.8); Lymphocytes % (A) 25 %; MCH 30.4 pg (25.0-35.0); MCHC 34.6 g/dL (31.0-37.0); MCV 87.9 fL (80.0-100.0); Mean Platelet Volume 8.6; Monocytes # (A) 0.2 k/uL (0-1.0); Monocytes % (A) 5 %; Neutrophils # (A) 3.1 k/uL (1.3-7.7); Neutrophils % (A) 67 %; RBC 4.48 m/uL (4.30-5.90); RDW 14.3 % (11.5-15.5); WBC 4.7 k/uL (3.8-10.6)
[2017-04-28 07:40] LABS: Anion Gap 11 mmol/L; Blood Urea Nitrogen 9 mg/dL (9-20); Calcium 8.9 mg/dL (8.4-10.2); Carbon Dioxide 23 mmol/L (22-30); Chloride 107 mmol/L (98-107); Glucose 111 mg/dL (74-99); Potassium 3.8 mmol/L (3.5-5.1); Sodium 141 mmol/L (137-145)
[2017-04-28 07:45] LABS: Platelet Count 84 k/uL (150-450)
[2017-04-28] MEDS: IPRATROPIUM-ALBUTEROL 3 ML NEB INHALATION SCH ×3 (08:58→19:54)
[2017-04-28] MEDS: HYDROcodone/APAP 10-325MG 1 EACH TAB PO PRN ×2 (10:07→17:58)
[2017-04-28] MEDS: LISINOPRIL 20 MG TAB PO SCH (10:08)
[2017-04-28] MEDS: HEPARIN SODIUM,PORCINE 5,000 UNIT/ML 1 ML VIAL SQ SCH ×2 (10:08→21:46)
[2017-04-28] MEDS: AMOXIC-POT CLAV 875-125MG 1 EACH TAB PO SCH ×2 (10:08→21:46)
[2017-04-28] MEDS: GABAPENTIN 400 MG CAP PO SCH ×3 (10:08→21:47)
[2017-04-28] MEDS: levETIRAcetam 500 MG TAB PO SCH ×2 (10:08→21:47)
[2017-04-28] MEDS: PANTOPRAZOLE 40 MG TABLET PO SCH (10:08)
[2017-04-28] MEDS: FLUoxetine HCL 20 MG CAP PO SCH (10:08)
[2017-04-28] MEDS: SODIUM CHLORIDE 0.9% 1,000 ML IV SCH ×2 (10:09→17:56)
--- NOTE | 2017-04-28 13:58 | US ---
EXAMINATION TYPE: US venous doppler duplex LE LT DATE OF EXAM: 04/28/2017 1:48 PM COMPARISON: NONE CLINICAL HISTORY: possible DVT. SIDE PERFORMED: left TECHNIQUE: The lower extremity deep venous system is examined utilizing real time linear array sonog nicola with graded compression, doppler sonography and color-flow sonography. VESSELS IMAGED: External Iliac Vein (EIV) Common Femoral Vein Deep Femoral Vein Greater Saphenous Vein * Femoral Vein Popliteal Vein Small Saphenous Vein * Proximal Calf Veins (* superficial vessels) Grayscale, color doppler, spectral doppler imaging performed of the deep veins of the lower extremiti es. There is normal flow, compressibility, vascular waveforms. Left Leg: Negative for DVT IMPRESSION: No sonographic evidence of deep venous thrombosis within the left lower extremity.
--- NOTE | 2017-04-28 14:34 | P.PN ---
Subjective Progress Note Date: 04/28/17 This patient is a 62-year-old right-handed white male who was admitted hospital yesterday with symptoms of generalized weakness and history of recent intracerebral hemorrhage and hemorrhagic stroke which she suffered in December of last year. Patient underwent a computed tomography scan of the brain in the emergency room which revealed evidence of a large right hemispheric stroke. He complained of generalized weakness and had undergone extensive rehabilitation at [facility] for 12 weeks. The patient was discharged from there in March to home. He is living at home with the help of his son. There was concern that the patient may have suffered a new area of stroke due to his weakness. He has significant left-sided hemiplegia from his initial stroke of last year. He has not appreciated much improvement with this condition. Patient was sent for MRI of the brain today which reveals no evidence of recent infarct. There was a large old right sided infarction redemonstrated with no change from previous CAT scan study. We reviewed the results of the CAT scan today with the patient in detail. He was offered to possibly consider rehab placement but he wants to rather go home and have help from his son. Patient was seen by pulmonary medicine today. He remains afebrile. His oxygen saturations are in the 90s. His urine culture was positive for coagulase- negative staph. He is currently on accommodation of vancomycin and Zosyn. Neurologically the patient shows no new changes. There is no evidence of recurrent stroke based on his MRI of the brain that was just completed. The patient was complaining of increased swelling in his left leg today. He was sent for a venous Doppler ultrasound of the left leg which did come back negative for DVT. He continues to do about the same in terms of his neurological status. He states he is awaiting possible discharge planning to be done over the next few days. We will continue to follow his progress closely during this admission. He is being ready for possible discharge home soon. Objective - Vital Signs Vital signs: Vital Signs Temp 98.2 F 04/28/17 09:53 Pulse 92 04/28/17 14:05 Resp 16 04/28/17 09:53 BP 138/88 04/28/17 09:53 Pulse Ox 90 L 04/28/17 09:53 Intake & Output 04/27/17 04/28/17 04/28/17 18:59 06:59 18:59 Intake Total 1010 960 120 Output Total 1 300 Balance 1009 660 120 Intake: Intake, IV Titration 50 Amount Piperacillin-Tazobactam 3 50 .375 gm In Dextrose/Water 1 50ml.bag @ 12.5 mls/hr IVPB Q8HR [facility] Rx#: [id number] Oral 960 960 120 Output: Urine 1 300 Stool 0 Other: Voiding Method Urinal Urinal Urinal Incontinent Incontinent Incontinent # Voids 3 1 1 # Bowel Movements 2 2 - Exam Physical examination: PHYSICAL EXAMINATION: Patient is resting comfortably in bed. VITAL SIGNS: Blood pressure is [138/88]. Heart rate is [99]. Respiration is [16] . Temperature is [98.2]. HEENT: Head is atraumatic, neck is supple, there were no carotid bruits. CHEST: Lungs are clear to auscultation and percussion. CARDIAC: S1, S2 normal rate and rhythm. There is no murmur. ABDOMEN: Soft and nontender. Bowel sounds are present. EXTREMITIES: There is no pedal edema. Peripheral pulses are present. Neurological examination: Patient's neurological examination is unchanged from yesterday. He has a dense left-sided hemiplegia. His speech is clear with no evidence of any aphasia. He noted to have slight swelling of the left lower extremity. - Labs CBC & Chem 7: 04/28/17 06:34 04/28/17 06:34 Labs: Abnormal Lab Results - Last 24 Hours (Table) 04/28/17 04/28/17 Range/Units 06:34 06:34 Plt Count 84 L (150-450) k/uL Creatinine 0.63 L (0.66-1.25) mg/dL Glucose 111 H (74-99) mg/dL Microbiology - Last 24 Hours (Table) 04/24/17 21:54 Urine Culture - Final Urine,Voided Staphylococcus epidermidis 04/24/17 21:54 Blood Culture - Preliminary Blood No Growth after 72 hours Assessment and Plan (1) History of hemorrhagic stroke with residual hemiplegia Current Visit: Yes Status: Acute Code(s): I69.359 - HEMIPLGA FOLLOWING CEREBRAL INFARCTION AFFECTING UNSP SIDE SNOMED Code(s): 282215171 (2) Acute encephalopathy Current Visit: Yes Status: Acute Code(s): G93.40 - ENCEPHALOPATHY, UNSPECIFIED SNOMED Code(s): 45794601 (3) UTI (urinary tract infection) Current Visit: Yes Status: Acute Code(s): N39.0 - URINARY TRACT INFECTION, SITE NOT SPECIFIED SNOMED Code(s): 27196926 (4) Pneumonia Current Visit: Yes Status: Acute Code(s): J18.9 - PNEUMONIA, UNSPECIFIED ORGANISM SNOMED Code(s): 443221409 Plan: This patient is a 62-year-old right-handed white male who was admitted hospital with suspicion of new stroke. Patient underwent extensive evaluation including MRI of the brain which revealed no evidence of new or acute stroke. He does have evidence of an old right hemispheric stroke which she suffered in December 2016. Patient is being treated now for left lower lobe pneumonia suspected to be due to aspiration. He has been responding to his antibiotics. His mental status is shown some improvement. He had noticed swelling of his left lower extremity and was sent for a venous Doppler ultrasound study today which came back negative for DVT. As noted he has evidence of a mild metabolic encephalopathy that is improving. We will continue close neurological follow- up for the patient. He is awaiting discharge planning for possible discharge home in the next few days. This overall prognosis at this time remains guarded.
--- NOTE | 2017-04-28 16:44 | P.PN ---
Subjective Progress Note Date: 04/28/17 Principal diagnosis: Altered mental status secondary to left lower lobe pneumonia possible aspiration , urinary tract infection This is a 62-year-old white male patient of Dr. Beck, presented to the emergency department on 04/24/2017 at 2114, with complaints of increasing weakness, nonproductive cough, generalized fatigue, slurring of his words. Patient had a recent hemorrhagic stroke in December 2016, was treated at [facility], and was discharged to rehab afterwards. Does complain of a slight headache on and off. Today he is complaining of some left facial numbness. Denied any fever or chills at home. denies any chest tenderness, denies any chest congestion. He states since his stroke he has been on a mechanical soft diet, had some difficulty swallowing, but did have a swallow evaluation 4 weeks ago, which he passed. Denies any dyspnea. he is on room air, with pulse ox of 94%. Was febrile on admission with a temp of 101.1 degrees Fahrenheit. Chest x-ray taken in the ED showed mild infiltrate at the left lung base atelectasis at the left lung base. No evidence of heart failure. Brain CT showed a large right-sided internal capsule infarct, which was new, compared to last CT brain from 2013 taken at this institution. Follow-up chest x-ray from showed continued airspace disease at the left lung base. Influenza screen was negative. No leukocytosis. Patient was suspected to have aspiration pneumonia and acute urinary tract infection. He was placed on broad-spectrum antibiotics combination of Zosyn, Levaquin and vancomycin. We were asked to see the patient in consultation in regards to possibility of left lower lobe pneumonia compared to aspiration. The patient is seen again today 04/27/2017 in follow-up in the regular medical floor. He is currently sitting up in a chair at the bedside. He is awake and alert in no acute distress. He has been having some ongoing issues with dysphagia. He's been choking on water as well. MRI of the brain revealed no evidence of a recent infarct however there is a large old right-sided infarct redemonstrated. No significant change from previous. He denies any worsening shortness of breath, or congestion. He has a loose nonproductive cough. He has been afebrile. Maintaining O2 saturations in the 90s on room air. No leukocytosis. Urine culture preliminary coag-negative staph. He is currently on vancomycin and Zosyn. She is seen again today 04/28/2017 in follow-up in the regular medical floor. He is awake and alert in no acute distress. He denies any worsening shortness of breath, cough or congestion. He is maintaining good O2 saturations in the 90s on room air. He's been afebrile. Hemodynamically stable. Her culture was positive for Staphylococcus epidermidis. No leukocytosis. Hemoglobin 13.6. Creatinine 0.63. He is on Augmentin. Doppler of the left lower extremity was negative for DVT. Objective - Vital Signs Vital signs: Vital Signs Temp 97.6 F 04/28/17 15:00 Pulse 77 04/28/17 15:00 Resp 20 04/28/17 15:00 BP 117/75 04/28/17 15:00 Pulse Ox 94 L 04/28/17 15:00 Intake & Output 04/27/17 04/28/17 04/28/17 18:59 06:59 18:59 Intake Total 1010 960 357 Output Total 1 300 Balance 1009 660 357 Intake: Intake, IV Titration 50 Amount Piperacillin-Tazobactam 3 50 .375 gm In Dextrose/Water 1 50ml.bag @ 12.5 mls/hr IVPB Q8HR [facility] Rx#: [id number] Oral 960 960 357 Output: Urine 1 300 Stool 0 Other: Voiding Method Urinal Urinal Urinal Incontinent Incontinent Incontinent # Voids 3 1 1 # Bowel Movements 2 2 - Exam GENERAL EXAM: Alert, pleasant, 62-year-old white male, comfortable in no apparent distress. HEAD: Normocephalic/atraumatic. EYES: Normal reaction of pupils, equal size. Conjunctiva pink, sclera white. NOSE: Clear with pink turbinates. THROAT: No erythema or exudates. NECK: No masses, no JVD, no thyroid enlargement, no adenopathy. CHEST: No chest wall deformity. Symmetrical expansion. LUNGS: Equal air entry with no crackles, wheeze, rhonchi or dullness.Diminished breath sounds at the bases CVS: Regular rate and rhythm, normal S1 and S2, no gallops, no murmurs, no rubs ABDOMEN: Soft, nontender. No hepatosplenomegaly, normal bowel sounds, no guarding or rigidity. EXTREMITIES: No clubbing, no edema, no cyanosis, 2+ pulses and upper and lower extremities. MUSCULOSKELETAL: Muscle strength and tone normal. SPINE: No scoliosis or deformity SKIN: No rashes CENTRAL NERVOUS SYSTEM: Alert and oriented -3. Left-sided weakness noted PSYCHIATRIC: Alert and oriented -3. Appropriate affect. Intact judgment and insight. - Labs CBC & Chem 7: 04/28/17 06:34 04/28/17 06:34 Labs: Abnormal Lab Results - Last 24 Hours (Table) 04/28/17 04/28/17 Range/Units 06:34 06:34 Plt Count 84 L (150-450) k/uL Creatinine 0.63 L (0.66-1.25) mg/dL Glucose 111 H (74-99) mg/dL Microbiology - Last 24 Hours (Table) 04/24/17 21:54 Urine Culture - Final Urine,Voided Staphylococcus epidermidis 04/24/17 21:54 Blood Culture - Preliminary Blood No Growth after 72 hours Assessment and Plan Assessment: Assessment: #1.Left lower lobe focal airspace disease, consistent with left lower lobe pneumonia, secondary to possible aspiration, although the patient states he did pass a swallow evaluation several weeks ago. Denies any dyspnea, denies any chest wall tenderness, denies any congestion, sputum production. Maintaining good O2 saturations in the 90s on room air. No leukocytosis. #2. Febrile illness, slurred speech, weakness, fatigue and encephalopathy present on admission, possibly related to acute urinary tract infection and pneumonia #3. History of right hemispheric hemorrhagic CVA causing left-sided weakness in December 2016. #4. History of liver cirrhosis and hepatitis C #5. History of hypothyroidism #6. History of degenerative joint disease #7. Thrombocytopenia, possibly related to chronic liver disease #8. Elevated creatinine kinase, possibly related to mild rhabdomyolysis Plan: The patient was seen and evaluated by Dr. Ortiz. The patient is improved and his lungs are clear. We'll continue with bronchodilators. Continue with antibiotics. Urine culture positive for Staphylococcus epidermidis. He remains on Augmentin. Doppler of the left lower extremity negative for DVT. We 'll see the patient on as-needed basis. I, the cosigning physician, performed a history & physical examination of the patient. Lungs sounds are clear. Maintaining good O2 saturations in the 90s on room air. I discussed the assessment and plan of care with my nurse practitioner, Zelda Mark. I attest to the above note as dictated by her.
--- NOTE | 2017-04-28 18:42 | PN ---
PROGRESS NOTE DATE OF SERVICE: 04/28/2017 PRESENTING COMPLAINT: Cough. INTERVAL HISTORY: Patient was admitted with left lower lobe pneumonia. Cough is improved. Sputum is better. Diet has improved. Patient does complain the left leg swelling. Tolerating a diet. Had a bowel movement. REVIEW OF SYSTEMS: Done for constitutional, cardiovascular, GI, pulmonary; relevant findings as above. CURRENT MEDICATIONS: Reviewed. They include Augmentin. PHYSICAL EXAMINATION: Temperature 97.6, pulse 77, respiration 20, blood pressure 117/75, pulse ox 94% on room air. GENERAL APPEARANCE: Sitting up on a chair, comfortable, awake. EYES: Pupils equal. Conjunctivae normal. HEENT: External appearance of nose and ears normal. Oral cavity normal. NECK: JVD not raised. Mass not palpable. RESPIRATORY: Effort normal. LUNGS: Decreased breath sounds. Minimal wheezing. CARDIOVASCULAR: First and second sounds normal. No edema. ABDOMEN: Soft, nontender. Liver and spleen not palpable. PSYCHIATRY: Alert and oriented x3. Mood and affect normal. EXTREMITIES: Swelling of the left thigh compared to the right. INVESTIGATIONS: White count 4.7, potassium 3.8. ASSESSMENT: 1. Left thigh swelling compared to the right. Rule out DVT. 2. Left lower lobe pneumonia suspected to be aspiration, clinically improving. 3. Suspect intermittent dysphagia, even though not showing up on the modified barium swallow. Patient to maintain aspiration precautions. 4. Sepsis from pneumonia, present on admission, improved. 5. Metabolic encephalopathy on presentation, improved. 6. Right internal capsule hemorrhagic stroke causing left-sided weakness from December 2016. 7. Liver cirrhosis with hepatitis C. 8. Hypothyroidism. 9. Degenerative joint disease. 10.Thrombocytopenia, likely multifactorial. PLAN: Doppler ultrasound of the left lower extremity was ordered that actually did come back negative. Continue current medication and treatment plan. If remains good, hopefully can be discharged tomorrow. MMODL / IJN: [id number] /
[2017-04-29 02:00] VITALS: RESP 16
[2017-04-29] MEDS: SODIUM CHLORIDE 0.9% 1,000 ML IV SCH (02:08)
[2017-04-29] MEDS: LEVOTHYROXINE 50 MCG TAB PO SCH (05:24)
[2017-04-29 06:57] LABS: Basophils % (A) 1 %; Eosinophils # (A) 0.1 k/uL (0-0.7); Eosinophils % (A) 2 %; HCT 39.7 % (39.0-53.0); HGB 13.6 gm/dL (13.0-17.5); Lymphocytes # (A) 1.4 k/uL (1.0-4.8); Lymphocytes % (A) 27 %; MCH 30.1 pg (25.0-35.0); MCHC 34.2 g/dL (31.0-37.0); MCV 88.1 fL (80.0-100.0); Mean Platelet Volume 7.9; Monocytes # (A) 0.3 k/uL (0-1.0); Monocytes % (A) 5 %; Neutrophils # (A) 3.2 k/uL (1.3-7.7); Neutrophils % (A) 64 %; Platelet Count 103 k/uL (150-450); RBC 4.51 m/uL (4.30-5.90); RDW 14.4 % (11.5-15.5)
[2017-04-29] MEDS: IPRATROPIUM-ALBUTEROL 3 ML NEB INHALATION SCH ×2 (07:13→13:46)
[2017-04-29 07:17] LABS: Anion Gap 8 mmol/L; Blood Urea Nitrogen 11 mg/dL (9-20); Calcium 9.1 mg/dL (8.4-10.2); Carbon Dioxide 25 mmol/L (22-30); Chloride 108 mmol/L (98-107); Glucose 107 mg/dL (74-99); Potassium 3.9 mmol/L (3.5-5.1); Sodium 141 mmol/L (137-145)
[2017-04-29 08:00] VITALS: BP 130/69; TEMP 98
[2017-04-29] MEDS: HEPARIN SODIUM,PORCINE 5,000 UNIT/ML 1 ML VIAL SQ SCH (08:52)
[2017-04-29] MEDS: GABAPENTIN 400 MG CAP PO SCH (08:52)
[2017-04-29] MEDS: AMOXIC-POT CLAV 875-125MG 1 EACH TAB PO SCH (08:53)
[2017-04-29] MEDS: LISINOPRIL 20 MG TAB PO SCH (08:53)
[2017-04-29] MEDS: PANTOPRAZOLE 40 MG TABLET PO SCH (08:53)
[2017-04-29] MEDS: FLUoxetine HCL 20 MG CAP PO SCH (08:53)
[2017-04-29] MEDS: levETIRAcetam 500 MG TAB PO SCH (08:53)
[2017-04-29] MEDS: HYDROcodone/APAP 10-325MG 1 EACH TAB PO PRN (09:03)
[2017-04-29 13:56] VITALS: PULSE 84
--- NOTE | 2017-04-29 18:31 | DS ---
DISCHARGE SUMMARY DATE OF ADMISSION: 04/24/2017. DATE OF DISCHARGE: 04/29/2017 FINAL DIAGNOSES: 1. Left lower lobe pneumonia, suspect aspiration, present on admission. 2. Intermittent dysphagia from recent stroke. 3. Sepsis, present on admission from pneumonia. 4. Metabolic encephalopathy on presentation, improved. 5. Right internal capsule hemorrhagic stroke causing left-sided weakness from back in December 2016. 6. Liver cirrhosis, hepatitis C. 7. Hypothyroidism. 8. Degenerative joint disease. 9. Thrombocytopenia, likely multifactorial. 10.Code status: DO NOT RESUSCITATE. HOSPITAL COURSE: This patient presented with pneumonia with sepsis picture, present on admission, given antibiotics to which he responded well. A modified barium swallow was negative, though patient is felt to have possible intermittent dysphagia. The patient has to be careful. Doing better at the time of discharge. DVT was ruled out. The patient did have an MRI of the brain that showed old changes. Carotid Doppler did not show any critical stenosis. CONSULTATION: Dr. Nidhi Durham from neurology, Dr. Ortiz from Pulmonary. EXAM: LUNGS: Decreased breath sounds. PSYCH: AO x3. DISCHARGE MEDICATIONS: 1. Prozac 20 mg p.o. daily. 2. Neurontin 800 mg p.o. t.i.d. 3. Synthroid 50 mcg p.o. daily. 4. Zestril 20 mg p.o. daily. 5. Keppra 500 mg p.o. q.12. 6. Augmentin 875 1 tablet p.o. q.12. 7. DuoNeb t.i.d. Follow up with Dr. Beck in 3 days. The patient's pulse ox was 97% on room air. MMODL / IJN: [id number] /
== END 2017-04-29 14:57 | disposition home or self-care (01) | DRG 871 ==
LOC: EC 21:14 → 3SUR 23:13
PROVIDERS: ADMIT Hospitalist; ATTEND Hospitalist
DX: A41.9 Sepsis, unspecified organism (principal); J69.0 Pneumonitis due to inhalation of food and vomit; G93.41 Metabolic encephalopathy; I69.354 Hemiplegia and hemiparesis following cerebral infarction affecting left non-dominant side; R13.10 Dysphagia, unspecified; D69.6 Thrombocytopenia, unspecified; M62.82 Rhabdomyolysis; N39.0 Urinary tract infection, site not specified; J98.11 Atelectasis; J32.2 Chronic ethmoidal sinusitis; Z66 Do not resuscitate; K74.60 Unspecified cirrhosis of liver; I69.392 Facial weakness following cerebral infarction; I69.391 Dysphagia following cerebral infarction; I69.328 Other speech and language deficits following cerebral infarction; R40.2362 Coma scale, best motor response, obeys commands, at arrival to emergency department; R40.2142 Coma scale, eyes open, spontaneous, at arrival to emergency department; R40.2252 Coma scale, best verbal response, oriented, at arrival to emergency department; B19.20 Unspecified viral hepatitis C without hepatic coma; E03.9 Hypothyroidism, unspecified; M19.91 Primary osteoarthritis, unspecified site; K76.0 Fatty (change of) liver, not elsewhere classified; Z79.899 Other long term (current) drug therapy; Z87.891 Personal history of nicotine dependence; Z88.5 Allergy status to narcotic agent; Z91.048 Other nonmedicinal substance allergy status
CPT/HCPCS: 36415; 70450; 70551; 71046; 74230; 80048; 80053; 80177; 80202; 81001; 82550; 82553; 83605; 83735; 84484; 85025; 85610; 85730; 87040; 87077; 87086; 87186; 87502; 93005; 93880; 94640; 96360; 96361; 99285

== ENCOUNTER 2017-08-27 19:37 | Emergency (ER) | payer MEDICARE ==
--- NOTE | 2017-08-27 20:28 | ED ---
General Adult HPI - General Chief complaint: Recheck/Abnormal Lab/Rx Stated complaint: Poss stroke symtoms Time Seen by Provider: 08/27/17 20:10 Source: patient, RN notes reviewed, old records reviewed Mode of arrival: wheelchair Limitations: no limitations - History of Present Illness Initial comments: 62-year-old male presents for evaluation of worsening confusion. Patient has history of hemorrhagic stroke approximately 8 months prior. He has residual left-sided weakness and paralysis. This is unchanged from baseline. He states that over the past 24 hours he felt confused, unable to remember things. Denies headache. Denies vision changes. Denies worsening weakness or right- sided weakness. No chest pain or dyspnea. No abdominal pain. No nausea vomiting or diarrhea. - Related Data Home Medications Medication Instructions Recorded Confirmed FLUoxetine HCL [PROzac] 20 mg PO DAILY 04/24/17 04/24/17 Gabapentin [Neurontin] 800 mg PO TID 04/24/17 04/24/17 Levothyroxine Sodium [Synthroid] 50 mcg PO DAILY 04/24/17 04/24/17 Lisinopril [Zestril] 20 mg PO DAILY 04/24/17 04/24/17 levETIRAcetam [Keppra] 500 mg PO Q12HR 04/24/17 04/24/17 Previous Rx's Medication Instructions Recorded Amoxic-Pot Clav 875-125Mg 1 each PO Q12HR #6 tab 04/29/17 [Augmentin 875-125] Ipratropium-Albuterol Nebulize 3 ml INHALATION RT-TID #90 04/29/17 [Duoneb 0.5 mg-3 mg/3 ml Soln] ampul.neb Allergies Allergy/AdvReac Type Severity Reaction Status Date / Time tramadol Allergy Severe SEIZURE Verified 08/27/17 20:01 black rubber Allergy Severe Dyspnea, Uncoded 08/27/17 20:01 Swelling Review of Systems ROS Statement: Those systems with pertinent positive or pertinent negative responses have been documented in the HPI. ROS Other: All systems not noted in ROS Statement are negative. Past Medical History Past Medical History: CVA/TIA, Hypertension, Thyroid Disorder Additional Past Medical History / Comment(s): hemorrhagic stroke, cirrohsis, hep c History of Any Multi-Drug Resistant Organisms: None Reported Past Surgical History: Hernia Repair, Orthopedic Surgery Additional Past Surgical History / Comment(s): bilat rotator cuff, carpal tunnel surgery, neck surgery, cataract surgery Past Anesthesia/Blood Transfusion Reactions: No Reported Reaction Past Psychological History: No Psychological Hx Reported Smoking Status: Former smoker Past Alcohol Use History: None Reported Past Drug Use History: None Reported General Exam Limitations: no limitations General appearance: alert, in no apparent distress Head exam: Present: atraumatic, normocephalic Eye exam: Present: EOMI. Absent: PERRL (left 2 mm reactive, right pupil 3 mm and reactive) ENT exam: Present: normal exam Neck exam: Present: normal inspection. Absent: tenderness, meningismus Respiratory exam: Present: normal lung sounds bilaterally. Absent: respiratory distress, wheezes Cardiovascular Exam: Present: regular rate, normal rhythm GI/Abdominal exam: Present: soft. Absent: distended, tenderness, guarding Extremities exam: Present: normal inspection, normal capillary refill Neurological exam: Present: alert, oriented X3, motor sensory deficit (Left upper extremity complete paralysis, minimal movement in the left lower extremity.) Psychiatric exam: Present: normal affect, normal mood Skin exam: Present: warm, dry, intact. Absent: cyanosis, diaphoretic Course Vital Signs 08/27/17 19:57 Temperature 98.2 F Pulse Rate 70 Respiratory 17 Rate Blood Pressure 150/67 O2 Sat by Pulse 98 Oximetry EKG Findings - EKG Comments: EKG Findings:: EKG: Normal sinus rhythm, left axis deviation, rate of 62, WA interval 172, QRS duration 96, QTC 410, no ST segment elevation or depression Medical Decision Making - Medical Decision Making 62-year-old male with chief complaint of confusion. Patient is alert and oriented time my evaluation. He does have focal deficits consistent with previous hemorrhagic stroke. Vital signs are stable. CT is obtained, this is negative for any acute intercranial pathology, does show large encephalomalacia from previous hemorrhagic stroke. Chest x-ray negative for focal pneumonia or acute findings. Normal CBC, normal CMP. On reevaluation, patient is eager for discharge, he is offered observation for neurology consultation, he declines. He has an appointment with primary care physician tomorrow. He will maintain this appointment. He will return with worsening or changing symptoms. Family is present and is agreeable with plan. - Lab Data Result diagrams: 08/27/17 20:07 08/27/17 20:07 Lab Results 08/27/17 08/27/17 08/27/17 Range/Units 20:07 20:07 20:07 WBC 5.7 (3.8-10.6) k/uL RBC 5.34 (4.30-5.90) m/uL Hgb 15.9 (13.0-17.5) gm/dL Hct 46.4 (39.0-53.0) % MCV 86.8 (80.0-100.0) fL MCH 29.7 (25.0-35.0) pg MCHC 34.2 (31.0-37.0) g/dL RDW 14.8 (11.5-15.5) % Plt Count 95 L (150-450) k/uL Neutrophils % 57 % Lymphocytes % 35 % Monocytes % 5 % Eosinophils % 1 % Basophils % 1 % Neutrophils # 3.3 (1.3-7.7) k/uL Lymphocytes # 2.0 (1.0-4.8) k/uL Monocytes # 0.3 (0-1.0) k/uL Eosinophils # 0.1 (0-0.7) k/uL Basophils # 0.0 (0-0.2) k/uL Manual Slide Review Performed RBC Morphology Normal PT 12.4 H (9.0-12.0) sec INR 1.3 H (<1.2) APTT 23.4 (22.0-30.0) sec Sodium 142 (137-145) mmol/L Potassium 4.0 (3.5-5.1) mmol/L Chloride 105 (98-107) mmol/L Carbon Dioxide 23 (22-30) mmol/L Anion Gap 14 mmol/L BUN 9 (9-20) mg/dL Creatinine 0.70 (0.66-1.25) mg/dL Est GFR (CKD-EPI)AfAm >90 (>60 ml/min/1.73 sqM) Est GFR (CKD-EPI)NonAf >90 (>60 ml/min/1.73 sqM) Glucose 136 H (74-99) mg/dL POC Glucose (mg/dL) (75-99) mg/dL POC Glu Student Loan Counselor ID Calcium 9.2 (8.4-10.2) mg/dL Total Bilirubin 0.8 (0.2-1.3) mg/dL AST 28 (17-59) U/L ALT 42 (21-72) U/L Alkaline Phosphatase 111 (38-126) U/L Total Protein 6.9 (6.3-8.2) g/dL Albumin 3.9 (3.5-5.0) g/dL 08/27/17 Range/Units 21:22 WBC (3.8-10.6) k/uL RBC (4.30-5.90) m/uL Hgb (13.0-17.5) gm/dL Hct (39.0-53.0) % MCV (80.0-100.0) fL MCH (25.0-35.0) pg MCHC (31.0-37.0) g/dL RDW (11.5-15.5) % Plt Count (150-450) k/uL Neutrophils % % Lymphocytes % % Monocytes % % Eosinophils % % Basophils % % Neutrophils # (1.3-7.7) k/uL Lymphocytes # (1.0-4.8) k/uL Monocytes # (0-1.0) k/uL Eosinophils # (0-0.7) k/uL Basophils # (0-0.2) k/uL Manual Slide Review RBC Morphology PT (9.0-12.0) sec INR (<1.2) APTT (22.0-30.0) sec Sodium (137-145) mmol/L Potassium (3.5-5.1) mmol/L Chloride (98-107) mmol/L Carbon Dioxide (22-30) mmol/L Anion Gap mmol/L BUN (9-20) mg/dL Creatinine (0.66-1.25) mg/dL Est GFR (CKD-EPI)AfAm (>60 ml/min/1.73 sqM) Est GFR (CKD-EPI)NonAf (>60 ml/min/1.73 sqM) Glucose (74-99) mg/dL POC Glucose (mg/dL) 151 H (75-99) mg/dL POC Glu Student Loan Counselor ID Aditya Ingram Calcium (8.4-10.2) mg/dL Total Bilirubin (0.2-1.3) mg/dL AST (17-59) U/L ALT (21-72) U/L Alkaline Phosphatase (38-126) U/L Total Protein (6.3-8.2) g/dL Albumin (3.5-5.0) g/dL Disposition Clinical Impression: History of hemorrhagic stroke with residual hemiplegia Disposition: HOME SELF-CARE Condition: Fair Instructions: Self Care Measures After a Stroke (ED) Additional Instructions: PLease follow-up with primary care physician and neurology, return with worsening or changing symptoms. Is patient prescribed a controlled substance at d/c from ED?: No Referrals: Juancarlos Beck DO [Primary Care Provider] - 1-2 days Amena Daniels MD [STAFF PHYSICIAN] - 1-2 days Time of Disposition: 22:02
[2017-08-27 20:50] LABS: Basophils % (A) 1 %; Eosinophils # (A) 0.1 k/uL (0-0.7); Eosinophils % (A) 1 %; HCT 46.4 % (39.0-53.0); HGB 15.9 gm/dL (13.0-17.5); Lymphocytes % (A) 35 %; MCH 29.7 pg (25.0-35.0); MCHC 34.2 g/dL (31.0-37.0); MCV 86.8 fL (80.0-100.0); Mean Platelet Volume 8.6; Monocytes # (A) 0.3 k/uL (0-1.0); Monocytes % (A) 5 %; Neutrophils # (A) 3.3 k/uL (1.3-7.7); Neutrophils % (A) 57 %; RBC 5.34 m/uL (4.30-5.90); RDW 14.8 % (11.5-15.5); WBC 5.7 k/uL (3.8-10.6)
[2017-08-27 21:00] LABS: ALT 42 U/L (21-72); AST 28 U/L (17-59); Albumin 3.9 g/dL (3.5-5.0); Alkaline Phosphatase 111 U/L (38-126); Anion Gap 14 mmol/L; Blood Urea Nitrogen 9 mg/dL (9-20); Calcium 9.2 mg/dL (8.4-10.2); Carbon Dioxide 23 mmol/L (22-30); Chloride 105 mmol/L (98-107); Glucose 136 mg/dL (74-99); Sodium 142 mmol/L (137-145); Total Bilirubin 0.8 mg/dL (0.2-1.3); Total Protein 6.9 g/dL (6.3-8.2)
[2017-08-27 21:02] LABS: INR 1.3 (<1.2); Partial Thromboplastin Time 23.4 sec (22.0-30.0); Prothrombin Time 12.4 sec (9.0-12.0)
[2017-08-27 21:03] LABS: Platelet Count 95 k/uL (150-450)
--- NOTE | 2017-08-27 21:05 | CT ---
EXAMINATION TYPE: CT brain wo con DATE OF EXAM: 08/27/2017 COMPARISON: 04/24/2017 HISTORY: 62-year-old male with confusion, Altered mental status. TECHNIQUE: Examination was done in axial plane without intravenous contrast. Coronal and sagittal r econstructions performed. CT DLP: 962.1 mGycm Automated exposure control for dose reduction was used. FINDINGS: There is no evidence of acute intracranial hemorrhage, acute ischemic changes, mass, mass-effect, or extra-axial fluid collection. There is no effacement of cerebral sulci or basal subarachnoid cister ns. There is no hydrocephalus. There is no midline shift. Castañeda-white matter distinction is preserv ed. 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 Small amount of lobulated mucosal thickening posterior left sphenoid sinus. Mastoid air cells well pn eumatized. Orbits and globes are intact. IMPRESSION: 1. 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 2. No acute intracranial abnormality seen.
--- NOTE | 2017-08-27 21:07 | XR ---
EXAMINATION TYPE: XR chest 2V DATE OF EXAM: 08/27/2017 COMPARISON: 04/25/2017 HISTORY: 62-year-old male confusion, altered mental status TECHNIQUE: AP and lateral views FINDINGS: Heart normal size. Mild atherosclerotic arch calcifications. Mild interstitial prominence unchanged. Some strandy atelectasis or scarring at the left base. Improved bibasilar aeration as compared to mamta or exam. No consolidation or pleural effusion. Suture anchors at the left humeral head from prior cuf f repair. ACDF hardware partially seen. IMPRESSION: Chronic changes, some strandy scarring or atelectasis at the left base, no acute process seen.
[2017-08-27 21:48] LABS: Glucose,Whole Blood 151 mg/dL (75-99)
[2017-08-27 22:44] VITALS: BP 106/66; PULSE 54; RESP 18; TEMP 98.4
== END 2017-08-27 22:43 | disposition home or self-care (01) ==
LOC: EC 19:37
DX: I69.352 Hemiplegia and hemiparesis following cerebral infarction affecting left dominant side (principal); I10 Essential (primary) hypertension; E07.9 Disorder of thyroid, unspecified; Z88.5 Allergy status to narcotic agent; Z91.048 Other nonmedicinal substance allergy status; Z79.899 Other long term (current) drug therapy; Z87.891 Personal history of nicotine dependence
CPT/HCPCS: 36415; 70450; 71046; 80053; 85025; 85610; 85730; 93005; 99285

== ENCOUNTER 2017-10-28 04:22 | Emergency (ER) | payer MEDICARE ==
[2017-10-28 04:31] VITALS: TEMP 98.7
[2017-10-28] MEDS ORDERED: MORPHINE SULFATE 4 MG/ML SYRINGE IV STA (04:57)
[2017-10-28] MEDS ORDERED: SODIUM CHLORIDE 0.9% 500 ML IV STA (04:57)
[2017-10-28] MEDS ORDERED: ONDANSETRON 4 MG/2 ML VIAL IVP STA (04:57)
--- NOTE | 2017-10-28 05:01 | ED ---
Nausea/Vomiting/Diarrhea HPI - General Chief complaint: Nausea/Vomiting/Diarrhea Stated complaint: Nausea/Vomiting Time Seen by Provider: 10/28/17 04:52 Source: patient, EMS Mode of arrival: EMS Limitations: no limitations - History of Present Illness Initial comments: In who presents to be evaluated for vomiting, diarrhea, and abdominal pain. The patient woke with nausea and cramping diffuse abdominal pain around 3. Shortly after that he started having vomiting, followed by diarrhea. States this feels similar to previous diverticulitis that he had. MD complaint: nausea, vomiting, diarrhea Onset/Timin -: hour(s) Description of Vomiting: food contents Associated Abdominal Pain: Yes Location: diffuse Severity: moderate Quality: cramping Consistency: constant Improves with: none Worsens with: none Associated Symptoms: nausea/vomiting - Related Data Home Medications Medication Instructions Recorded Confirmed FLUoxetine HCL [PROzac] 20 mg PO DAILY 04/24/17 10/28/17 Gabapentin [Neurontin] 800 mg PO TID 04/24/17 10/28/17 Levothyroxine Sodium [Synthroid] 50 mcg PO DAILY 04/24/17 10/28/17 Lisinopril [Zestril] 20 mg PO DAILY 04/24/17 10/28/17 levETIRAcetam [Keppra] 500 mg PO Q12HR 04/24/17 10/28/17 Previous Rx's Medication Instructions Recorded Ipratropium-Albuterol Nebulize 3 ml INHALATION RT-TID #90 04/29/17 [Duoneb 0.5 mg-3 mg/3 ml Soln] ampul.neb Allergies Allergy/AdvReac Type Severity Reaction Status Date / Time tramadol Allergy Severe SEIZURE Verified 10/28/17 04:38 black rubber Allergy Severe Dyspnea, Uncoded 10/28/17 04:38 Swelling Review of Systems ROS Statement: Those systems with pertinent positive or pertinent negative responses have been documented in the HPI. ROS Other: All systems not noted in ROS Statement are negative. Constitutional: Denies: fever, chills Respiratory: Denies: cough, dyspnea Cardiovascular: Denies: chest pain, palpitations, edema Gastrointestinal: Reports: abdominal pain, nausea, vomiting, diarrhea. Denies: hematemesis, hematochezia Genitourinary: Denies: dysuria, hematuria Musculoskeletal: Denies: back pain Skin: Denies: rash Neurological: Denies: headache, weakness, numbness Past Medical History Past Medical History: CVA/TIA, Hypertension, Thyroid Disorder Additional Past Medical History / Comment(s): hemorrhagic stroke, cirrohsis stage 1, hep c History of Any Multi-Drug Resistant Organisms: None Reported Past Surgical History: Hernia Repair, Orthopedic Surgery Additional Past Surgical History / Comment(s): bilat rotator cuff, carpal tunnel surgery, neck surgery, cataract surgery Past Anesthesia/Blood Transfusion Reactions: No Reported Reaction Past Psychological History: No Psychological Hx Reported Smoking Status: Former smoker Past Alcohol Use History: None Reported Past Drug Use History: None Reported General Exam Limitations: no limitations General appearance: alert, in no apparent distress Head exam: Present: atraumatic, normocephalic Eye exam: Present: normal appearance. Absent: scleral icterus, conjunctival injection ENT exam: Present: mucous membranes dry Respiratory exam: Present: normal lung sounds bilaterally. Absent: respiratory distress, wheezes, rales, rhonchi, stridor Cardiovascular Exam: Present: regular rate, normal rhythm, normal heart sounds GI/Abdominal exam: Present: soft, tenderness (Mild left-sided tenderness without rebound or guarding), normal bowel sounds. Absent: distended, guarding , rebound, rigid, mass, pulsatile mass, hernia Extremities exam: Present: normal inspection, normal capillary refill. Absent: pedal edema, calf tenderness Neurological exam: Present: alert Skin exam: Present: warm, dry, intact, normal color. Absent: rash Course Vital Signs 10/28/17 10/28/17 10/28/17 04:25 05:44 06:31 Temperature 98.7 F Pulse Rate 83 88 87 Respiratory 18 16 Rate Blood Pressure 123/66 117/76 110/73 O2 Sat by Pulse 95 91 L Oximetry Medical Decision Making - Medical Decision Making Patient is 62-year-old man presenting with abdominal pain. His symptoms have resolved. He was concerned about possibility of a flareup of his diverticulitis and the CT does not show evidence of this. There is apparently bowel in the hernia now, with the hernia is not tender. I discussed further treatment of the hernia with the patient who states that he is not interested in having a surgery at this point. He states that he just wants go home, however he understands that he must return immediately should pain recur, should he develop any vomiting, or the other symptoms of obstruction that we discussed. The patient has no abdominal tenderness at the reevaluation. - Lab Data Result diagrams: 10/28/17 05:42 10/28/17 05:42 Lab Results 10/28/17 10/28/17 Range/Units 05:42 05:42 WBC 13.0 H (3.8-10.6) k/uL RBC 6.17 H (4.30-5.90) m/uL Hgb 18.0 H (13.0-17.5) gm/dL Hct 54.8 H (39.0-53.0) % MCV 88.8 (80.0-100.0) fL MCH 29.2 (25.0-35.0) pg MCHC 32.9 (31.0-37.0) g/dL RDW 14.8 (11.5-15.5) % Plt Count 110 L (150-450) k/uL Neutrophils % 90 % Lymphocytes % 5 % Monocytes % 4 % Eosinophils % 1 % Basophils % 0 % Neutrophils # 11.7 H (1.3-7.7) k/uL Lymphocytes # 0.6 L (1.0-4.8) k/uL Monocytes # 0.5 (0-1.0) k/uL Eosinophils # 0.1 (0-0.7) k/uL Basophils # 0.0 (0-0.2) k/uL Sodium 143 (137-145) mmol/L Potassium 4.5 (3.5-5.1) mmol/L Chloride 108 H (98-107) mmol/L Carbon Dioxide 22 (22-30) mmol/L Anion Gap 13 mmol/L BUN 13 (9-20) mg/dL Creatinine 0.97 (0.66-1.25) mg/dL Est GFR (CKD-EPI)AfAm >90 (>60 ml/min/1.73 sqM) Est GFR (CKD-EPI)NonAf 83 (>60 ml/min/1.73 sqM) Glucose 206 H (74-99) mg/dL Calcium 9.9 (8.4-10.2) mg/dL Total Bilirubin 1.2 (0.2-1.3) mg/dL AST 24 (17-59) U/L ALT 26 (21-72) U/L Alkaline Phosphatase 102 (38-126) U/L Total Protein 7.7 (6.3-8.2) g/dL Albumin 4.3 (3.5-5.0) g/dL Amylase 82 (30-110) U/L Lipase 87 (23-300) U/L Disposition Clinical Impression: Abdominal pain, Hernia Disposition: HOME SELF-CARE Condition: Good Instructions: Umbilical Hernia (ED), Abdominal Pain (ED) Is patient prescribed a controlled substance at d/c from ED?: No Referrals: Juancarlos Beck DO [Primary Care Provider] - 1-2 days George Beckford MD [STAFF PHYSICIAN] - 1-2 days
[2017-10-28 06:11] LABS: Basophils % (A) 0 %; Eosinophils # (A) 0.1 k/uL (0-0.7); Eosinophils % (A) 1 %; HCT 54.8 % (39.0-53.0); Lymphocytes # (A) 0.6 k/uL (1.0-4.8); Lymphocytes % (A) 5 %; MCH 29.2 pg (25.0-35.0); MCHC 32.9 g/dL (31.0-37.0); MCV 88.8 fL (80.0-100.0); Mean Platelet Volume 9.4; Monocytes # (A) 0.5 k/uL (0-1.0); Monocytes % (A) 4 %; Neutrophils # (A) 11.7 k/uL (1.3-7.7); Neutrophils % (A) 90 %; Platelet Count 110 k/uL (150-450); RBC 6.17 m/uL (4.30-5.90); RDW 14.8 % (11.5-15.5)
[2017-10-28 06:25] LABS: ALT 26 U/L (21-72); AST 24 U/L (17-59); Albumin 4.3 g/dL (3.5-5.0); Alkaline Phosphatase 102 U/L (38-126); Amylase 82 U/L (30-110); Anion Gap 13 mmol/L; Blood Urea Nitrogen 13 mg/dL (9-20); Calcium 9.9 mg/dL (8.4-10.2); Carbon Dioxide 22 mmol/L (22-30); Chloride 108 mmol/L (98-107); Glucose 206 mg/dL (74-99); Lipase 87 U/L (23-300); Potassium 4.5 mmol/L (3.5-5.1); Sodium 143 mmol/L (137-145); Total Bilirubin 1.2 mg/dL (0.2-1.3); Total Protein 7.7 g/dL (6.3-8.2)
[2017-10-28 06:34] VITALS: BP 110/73; PULSE 87; RESP 16
--- NOTE | 2017-10-28 06:39 | CT ---
EXAM: CT Abdomen and Pelvis With Intravenous Contrast CLINICAL HISTORY: pain TECHNIQUE: Axial computed tomography images of the abdomen and pelvis with intravenous contrast. CTDI is 44.1 mGy and DLP is 1748 mGy-cm. This CT exam was performed using one or more of the following dose reduction techniques: automated exposure control, adjustment of the mA and/or kV according to patient size, and/or use of iterative reconstruction technique. COMPARISON: 08/10/13 FINDINGS: Lung bases: Unremarkable. No mass. No consolidation. ABDOMEN: Liver: Cirrhotic appearance the liver. Gallbladder and bile ducts: Surgical absence the gallbladder. No ductal dilation. Pancreas: Unremarkable. No mass. No ductal dilation. Spleen: Unremarkable. No splenomegaly. Adrenals: Stable appearance of left and right adrenal gland nodules Kidneys and ureters: Stable appearance to kidneys with bilateral renal cysts. No solid mass. No hydronephrosis. Stomach and bowel: A loop of small bowel is now contained within the umbilical hernia. This was not the case on the prior study. There is no evidence for obstruction or incarceration. No inflammatory changes noted in the GI tract.. PELVIS: Appendix: The appendix is unremarkable Bladder: The bladder is not well-distended but there does appear to be bladder wall thickening. . ABDOMEN and PELVIS: Intraperitoneal space: Unremarkable. No free air. No significant fluid collection. Bones/joints: No acute fracture. No dislocation. Soft tissues: Unremarkable. Vasculature: Unremarkable. No abdominal aortic aneurysm. Lymph nodes: Unremarkable. No enlarged lymph nodes. IMPRESSION: Normal abdomen and pelvis CT.
== END 2017-10-28 07:40 | disposition home or self-care (01) ==
LOC: EC 04:22
DX: K46.9 Unspecified abdominal hernia without obstruction or gangrene (principal); R10.84 Generalized abdominal pain; R11.2 Nausea with vomiting, unspecified; R19.7 Diarrhea, unspecified; I10 Essential (primary) hypertension; E07.9 Disorder of thyroid, unspecified; Z87.891 Personal history of nicotine dependence; Z88.5 Allergy status to narcotic agent; Z91.048 Other nonmedicinal substance allergy status; Z79.899 Other long term (current) drug therapy; Z98.890 Other specified postprocedural states
CPT/HCPCS: 36415; 80053; 82150; 83690; 85025; 74177; 99285; 96374; 96375; 96361; J2270; J2405; Q9967

== ENCOUNTER → 2019-04-12 | Outpatient (CLI) | payer MEDICARE ==
--- NOTE | 2019-04-12 16:06 | US ---
EXAMINATION TYPE: US liver DATE OF EXAM: 04/12/2019 COMPARISON: NONE CLINICAL HISTORY: cirrhosis of the liver, K74.60. EXAM MEASUREMENTS: Liver Length: 16.5 cm Gallbladder Wall: Surgically absent CBD: 0.3 cm Right Kidney: 9.6 x 4.8 x 5.0 cm Patient disabled, large abdomen, unable to well hold his breath, technically difficult limited study. Pancreas: Obscured by bowel gas right small portions visualized are unremarkable. Liver: limited visualization, right lobe only visualized through one intercostal window, nodular het erogeneous liver, not seen in it's entirety Gallbladder: Surgically absent Evidence for sonographic Robertson's sign: no CBD: wnl. very limited visualization Right Kidney: lower pole obscured by overlying bowel gas IMPRESSION: 1. No obvious masses within the liver. There is limitation on the visualization due to [id number]. 2. Limited examination
== END | disposition home or self-care (01) ==
LOC: RADUSWWP 10:55
PROVIDERS: ATTEND Internal Medicine Gastroenterology
DX: K74.60 Unspecified cirrhosis of liver (principal)
CPT/HCPCS: 76705